=== PATIENT | male | born 1985 | race Caucasian/White ===

== ENCOUNTER 2020-09-29 12:41 | Inpatient (IN) | payer MEDICARE, SELFPAY ==
--- NOTE | ~2020-09-29 | CT_ITS ---
EXAMINATION: HEAD CT WITHOUT CONTRAST CERVICAL SPINE CT WITHOUT CONTRAST CLINICAL INFORMATION: Altered mental status. COMPARISON: None. TECHNIQUE: Contiguous axial imaging of the head was performed without the administration of IV contrast. Axial multidetector volumetric images were also performed through the cervical spine without intravenous contrast. Multiplanar reconstructed images in coronal and sagittal orientations were submitted. This CT examination was performed using dose optimization techniques as appropriate, variously including the following: *Automated exposure control *Adjustment of mA and/or kV according to patient size (this includes techniques or standardized protocols for targeted exams where dose is matched to indication/reason for exam; i.e. extremities or head) *Use of iterative reconstruction technique DOSE: 643 and 218 mGy-cm FINDINGS: HEAD: There is no evidence of acute intracranial hemorrhage or territorial infarction. No abnormal mass-effect or midline shift. No extra-axial fluid collections. [place] to white matter differentiation is well preserved. The ventricles are normal in size and configuration. There is no abnormal attenuation within the brain parenchyma. The soft tissues and osseous structures are normal. The sinuses and mastoid air cells are clear. CERVICAL SPINE: Vertebral body heights are normal. No fractures of the vertebral bodies or posterior elements. Vertebral alignment is normal. No subluxation. The craniocervical and atlantoaxial articulations are normal. Intervertebral disc heights are normal. No significant degenerative disc disease. Facet joints are normal. Central canal and neural foramina appear patent without appreciable stenoses. No significant paravertebral soft tissue swelling. There is abnormal left lateral translation of the esophagus into the left cervical soft tissues just to deep to the left sternocleidomastoid muscle and superficial to the carotid and jugular vasculature.. There is gas in the left lung apex which is only partially included on these images, better seen on the CT of the chest. CT/CT cervical spine wo con IMPRESSION: 1. No acute intracranial pathology. 2. No acute fracture or malalignment in the cervical spine. 3. Abnormal lateral translation of the cervical esophagus into the left lateral superficial soft tissues, most likely the result of prior surgery.
--- NOTE | ~2020-09-29 | XR_ITS ---
EXAMINATION: XR CHEST CLINICAL INFORMATION: Abnormal chest CT COMPARISON: Chest CT from the same day. TECHNIQUE: Frontal view of the chest was obtained. FINDINGS: As seen in the chest CT, there is abnormal lucency along the medial aspect of the left lung, more pronounced at the apex, potentially corresponding to gas within a colonic interposition graft or markedly abnormal, patulous esophagus. This is noted to extend into the soft tissues of the left lateral neck. Adjacent lung is unremarkable aside from dependent atelectasis. No definite effusion on these supine images. Cardiac and mediastinal contours are unremarkable. No acute osseous findings. XR/XR chest 1V IMPRESSION: No acute pulmonary findings. Lucency in the medial aspect of the left hemithorax corresponds to the colonic interposition graft or patulous esophagus, better seen on the prior chest CT .
--- NOTE | ~2020-09-29 | XR_ITS ---
EXAMINATION: CHEST AND ABDOMEN CLINICAL INFORMATION: Foreign body COMPARISON: September 30, 2020 and September 29, 2020 TECHNIQUE: AP sitting chest. AP abdomen. FINDINGS: There is again noted be a radiopaque structure with appearance of metallic snap with low density material surrounding it which may represent plastic or fastening device. This may possibly represent a monitoring snap. This is seen in the retrocardiac region which appears to be within the left lower lung. There is again noted to be left lower lobe density with probable air-fluid level. There is again noted to be appears to be a loculated pneumothorax as seen on previous CT scan. Scarring is seen within the right upper lobe. Heart normal size. No evidence of pulmonary edema. No radial opaque foreign body is seen within the abdomen. Gastrostomy tube seen in place. No dilated loops of large or small bowel are evident. Stool and gas is seen throughout the colon. Psoas margins are intact. XR/XR KUB IMPRESSION: Radiopaque foreign body seen retrocardiac location left lower lobe with appearance of a snap. This is similar appearance to study of September 30, 2020 and is noted to be lower in position than on study of September 29, 2020. This lies in region of left lower lobe disease. What appears to be chronic loculated left pneumothorax. Gastrostomy tube in place with no significant abnormality of the abdomen appreciated.
--- NOTE | ~2020-09-29 | XR_ITS ---
EXAMINATION: XR CHEST CLINICAL INFORMATION: Evaluate foreign body left hemithorax. COMPARISON: None TECHNIQUE: Frontal view of the chest was obtained. FINDINGS: The lungs are hyperinflated with increased linear density in both upper lobes and left lower lobe likely chronic scarring or atelectasis. No acute consolidation seen. There is no pleural effusion. There is increased lucency in the left upper lobe likely from gastric pull-through or colonic intussusception which is distended with air.. Heart size and pulmonary vascularity is normal. No gross bony abnormality seen. XR/XR chest 1V IMPRESSION: Increased lucency in the left upper lobe likely related to postsurgical changes. Mild atelectatic changes or scarring in both upper lobes and lower lobes..
--- NOTE | ~2020-09-29 | CT_ITS ---
EXAMINATION: CT SOFT TISSUE NECK WITHOUT CONTRAST CLINICAL INFORMATION: Question foreign body ingestion. COMPARISON: CT scan of the chest abdomen and pelvis 09/29/2020. TECHNIQUE: Helical imaging was performed in the axial plane with generation of coronal and sagittal reformatted images. This CT examination was performed using dose optimization techniques as appropriate, variously including the following: *Automated exposure control *Adjustment of mA and/or kV according to patient size (this includes techniques or standardized protocols for targeted exams where dose is matched to indication/reason for exam; i.e. extremities or head) *Use of iterative reconstruction technique DLP: 245 mGy-cm FINDINGS: There appear to be chronic changes of esophagectomy with a colonic interposition repair that traverses the left neck into the thoracic outlet, anterior to the neurovascular bundle. Pharyngeal mucosal spaces are symmetric. Parapharyngeal and retromaxillary fat is preserved. Senior Engineer spaces are symmetric. Parotid and submandibular glands are normal. The tongue base and epiglottis are normal. Preepiglottic fat is preserved. Glottic and subglottic airways are patent. The thyroid gland is normal. There are no pathologically enlarged cervical lymph nodes. There is no acute osseous finding. No worrisome lytic or blastic osseous lesion. The skull base is intact. Limited visualization the posterior fossa reveals no abnormal finding. No mastoid middle ear effusion. No active paranasal sinus disease. CT/CT soft tissue neck wo con IMPRESSION: There appear to be chronic changes of an esophagectomy with a colonic interposition repair that traverses the left neck into the thoracic outlet anterior to the neurovascular bundle. A suspected perforation with an associated left hydropneumothorax, possibly related to an ingested foreign body is better depicted on dedicated CT imaging of the chest.
--- NOTE | ~2020-09-29 | CT_ITS ---
EXAMINATION: CT CHEST, ABDOMEN AND PELVIS WITHOUT CONTRAST CLINICAL INFORMATION: Altered mental status with G-tube in place. COMPARISON: No pertinent prior studies are available for comparison. TECHNIQUE: Multidetector volumetric imaging was performed from the thoracic inlet through the pubic symphysis without IV contrast. Sagittal and coronal reformatted images were obtained on the technologist's workstation. This CT examination was performed using dose optimization techniques as appropriate, variously including the following: *Automated exposure control *Adjustment of mA and/or kV according to patient size (this includes techniques or standardized protocols for targeted exams where dose is matched to indication/reason for exam; i.e. extremities or head) *Use of iterative reconstruction technique DLP: 189 mGy-cm FINDINGS: CHEST: Lung: Bibasilar scarring is present. Mediastinum: No mediastinal or hilar lymphadenopathy seen. Central vascular structures are unremarkable. An air-filled esophagus is not seen Pericardium/Pleura: There is a left-sided complex collection in the posterior chest which extends from the level of the diaphragm all the way up into the region of the cervical esophagus on the left neck, but a communication with the pharynx is not seen with certainty. Within this collection, there appears to be a metallic and possibly plastic foreign body seen with the metallic component almost appearing as a snap about 1.2 cm in diameter. The other component measures 2.75 x 2.0 cm. Without knowing surgical history, differential diagnosis is a bit difficult. One possibility would be if this patient had prior pneumonectomy, and a spacer was used in the pleural space to fill the potential pleural space (e.g., see: https://[email or web address].org/article/[email or web address])[email or web address]/pdf . Differential diagnosis would also include hydropneumothorax/empyema with a posterior pleural collection measuring at least 8.4 x 4.0 x 12.0 cm containing fluid and air. Alternatively, this could represent some kind of colonic interposition with colon in the pleural space, however, it is a bit unusual to not have any surgical clips in the abdomen or pelvis and, in addition, a G-tube is in place. Correlation with the surgical history will be critical in this case, and an accurate diagnosis cannot really be given without knowing the surgical history. Chest Wall/Axilla: No chest wall masses or axillary adenopathy seen. ABDOMEN/PELVIS: Peritoneal Space: No significant free air or free fluid identified. Liver, Gallbladder, Biliary Tree: The liver is normal in size, shape, and attenuation. No focal hepatic lesion or biliary ductal dilatation is present. The gallbladder is unremarkable with no evidence of radiopaque gallstones, gallbladder wall thickening, or obvious pericholecystic inflammatory changes. Pancreas: Unremarkable. Spleen: Unremarkable. Adrenal Glands: Unremarkable. Kidneys and Ureters: The kidneys are normal in size, shape, and attenuation. No hydronephrosis, hydroureter, or calculi seen. No perinephric stranding. Bladder: Unremarkable. Gastrointestinal Tract: Gastrostomy tube is in good position within the stomach. See discussion regarding the possibility of colon in the pleural space and possible interposition between the pharynx and stomach. However, the entire colon appears to be in place within the abdomen and pelvis, and no suture lines are seen. Abdominal Wall: No significant hernia is appreciated. Lymph Nodes: No lymphadenopathy. Vascular: No aortic aneurysm is seen. The IVC appears unremarkable. PELVIC VISCERA: A 1.8 cm cyst is noted in the right ovary. The uterus is unremarkable. No free intraperitoneal fluid is present. OSSEUS STRUCTURES: Artifact is present which appears to mimic a humeral fracture. No acute osseous injuries are seen. There are some deformity seen in the left-sided ribs which may be indicative of prior thoracotomy. CT/CT abdomen pelvis wo con IMPRESSION: 1. There is a collection in the chest described above which goes from the level of the diaphragm to the level of the cervical esophagus. Differential diagnosis is discussed above in the Pericardium/Pleura section. The clinical/surgical history is critical in this case. The most likely diagnosis may be that the patient underwent a modified thoracoplasty using some kind of implant to fill the potential pleural space. 2. Gastrostomy tube in good position. 3. Other incidental findings, as described above. This critical result was discussed with Tarah Bailey NP at 5:30 PM on the day of the exam, and it was ascertained that the content and urgency of the report was understood at the time of direct communication.
--- NOTE | ~2020-09-29 | XR_ITS ---
EXAMINATION: CHEST AND ABDOMEN CLINICAL INFORMATION: Foreign body COMPARISON: September 30, 2020 and September 29, 2020 TECHNIQUE: AP sitting chest. AP abdomen. FINDINGS: There is again noted be a radiopaque structure with appearance of metallic snap with low density material surrounding it which may represent plastic or fastening device. This may possibly represent a monitoring snap. This is seen in the retrocardiac region which appears to be within the left lower lung. There is again noted to be left lower lobe density with probable air-fluid level. There is again noted to be appears to be a loculated pneumothorax as seen on previous CT scan. Scarring is seen within the right upper lobe. Heart normal size. No evidence of pulmonary edema. No radial opaque foreign body is seen within the abdomen. Gastrostomy tube seen in place. No dilated loops of large or small bowel are evident. Stool and gas is seen throughout the colon. Psoas margins are intact. XR/XR chest 1V IMPRESSION: Radiopaque foreign body seen retrocardiac location left lower lobe with appearance of a snap. This is similar appearance to study of September 30, 2020 and is noted to be lower in position than on study of September 29, 2020. This lies in region of left lower lobe disease. What appears to be chronic loculated left pneumothorax. Gastrostomy tube in place with no significant abnormality of the abdomen appreciated.
--- NOTE | ~2020-09-29 | XR_ITS ---
EXAMINATION: XR CHEST CLINICAL INFORMATION: Question foreign body COMPARISON: CT scan performed earlier today TECHNIQUE: Frontal view of the chest was obtained. He was obtained with the EKG leads in place and then without the EKG leads in place. FINDINGS: A snap or button is seen overlying the mid thorax. Heart size normal. Mediastinal and pulmonary abnormalities better assessed on CT scan performed immediately before this. XR/XR chest 1V IMPRESSION: Given the fact that the patient swallowed an EKG lead and this is now within the collection seen in the chest which can infer that the patient had some kind of interposition graft between the oropharynx and the stomach. In the CT report, I stated that the most likely diagnosis would be a spacer after some kind of thoracoplasty, but this would not be the case given the above finding.
[2020-09-29 12:48] VITALS: BP 128/70; PULSE 101
[2020-09-29 12:49] VITALS: BP 112/75; PULSE 95; RESP 19; TEMP 36.9; O2SAT 98; BMI 20.3
[2020-09-29 12:51] LABS: Glucose, Whole Blood 110 mg/dL (60-115)
--- NOTE | 2020-09-29 13:22 | ECG_ITS ---
Test Reason : AMS Blood Pressure : / mmHG Vent. Rate : 068 BPM Atrial Rate : 068 BPM P-R Int : 098 ms QRS Dur : 092 ms QT Int : 408 ms P-R-T Axes : 034 057 030 degrees QTc Int : 433 ms Poor data quality, interpretation may be adversely affected Sinus rhythm with short MI Minimal voltage criteria for LVH, may be normal variant Borderline ECG No previous ECGs available Referred By: Angela Lopez Electronically Signed By:REBECCA HAM MD
[2020-09-29 14:43] LABS: Basophils Percent Auto 0.5 % (0-2); Eosinophils Percent Auto 0.2 % (0-4); Imm Gran Abs Auto 0.01 X10*3/uL (0.00-0.03); Imm Gran Pct Auto 0.2 % (0.0-0.4); Lymphocytes Absolute Auto 0.7 X10*3/uL (1.2-4.9); Lymphocytes Percent Auto 11.6 % (20-40); MANUAL DIFF FLAG SCAN; Mean Corpuscular Volume 93.5 fL (80-98); Monocytes Absolute Auto 0.3 X10*3/uL (0.1-1.2); Monocytes Percent Auto 5.5 % (2-11); Neutrophils Absolute Auto 4.7 X10*3/uL (2.0-8.3); PLT CLUMP 1; Red Cell Distribution Width 12.7 % (11.0-16.0); SCAN SMEAR FLAG 1; White Blood Count 5.8 X10*3/uL (4.8-10.8)
[2020-09-29 14:45] LABS: Glucose Urine UA NEG (NEG); Leukocyte Esterase Urine NEG (NEG); Nitrite Urine NEG (NEG); Urine Blood NEG (NEG); Urine Ketones NEG (NEG); Urine Protein NEG (NEG-TRACE)
[2020-09-29 14:48] LABS: Appearance Urine CLEAR; Color Urine YELLOW
[2020-09-29 14:59] LABS: Platelet Count 170 X10*3/uL (160-400); SLIDE REVIEW VERIFIED
[2020-09-29 15:11] LABS: Ammonia 30 umol/L (13-55)
[2020-09-29 15:18] LABS: Ethanol < 10 mg/dL
[2020-09-29 15:19] LABS: Amphetamine Screen Urine Not Detected (Not Detect); Barbiturates, Urine Not Detected (Not Detect); Benzodiazepines Screen Urine Not Detected (Not Detect); Cannabinoid Screen Urine Not Detected (Not Detect); Cocaine Screen Urine Not Detected (Not Detect); Opiate Screen Urine Not Detected (Not Detect); Phencyclidine Screen Urine Not Detected (Not Detect)
[2020-09-29 15:32] LABS: Magnesium 2.1 mg/dL (1.6-2.6); Salicylate < 5.0 mg/dL (15-30)
[2020-09-29 15:33] LABS: Albumin Level 4.6 g/dL (3.5-5.0); Alkaline Phosphatase 78 U/L (39-117); Anion Gap 14 (12-20); Bilirubin Total 0.3 mg/dL (0.0-1.0); Blood Urea Nitrogen 9 mg/dL (9-16); Calcium 9.8 mg/dL (8.4-10.2); Carbon Dioxide 26 mmol/L (22-29); Chloride 105 mmol/L (96-108); Estimated Glomerular Filt Rate > 60; Glucose Random 97 mg/dL (60-115); Lipase 14 U/L (8-78); Sodium 141 mmol/L (135-145); Total Protein 8.1 g/dL (6.5-8.0)
[2020-09-29 15:35] LABS: B Type Natriuretic Peptide 11 pg/mL (<100)
[2020-09-29 15:41] LABS: Acetaminophen LAB < 1 mcg/mL (<30)
[2020-09-29 15:47] LABS: Influenza A PCR NEGATIVE (Negative); Influenza B PCR NEGATIVE (Negative); Resp Syncy Virus RNA Qual PCR NEGATIVE (Negative); SARS COV2 PCR INHOUSE NEGATIVE (Negative)
--- NOTE | 2020-09-29 15:58 | ED.AMS ---
HPI - Altered Mental Status General Chief Complaint: Altered Mental Status <LINDA Goodman Last Filed: 09/29/20 16:52> Stated Complaint: CONFUSSION <LINDA Goodman Last Filed: 09/29/20 16:52> Time Seen by Provider: 09/29/20 13:06 <LINDA Goodman Last Filed: 09/29/20 16:52> Source: EMS <LINDA Goodman Last Filed: 09/29/20 16:52> Mode of arrival: EMS <LINDA Goodman Last Filed: 09/29/20 16:52> Limitations: altered mental status <LINDA Goodman Last Filed: 09/29/20 16:52> History of Present Illness HPI narrative: Patient is presenting via EMS after she was found unresponsive by bystanders with vomit on her clothes exhibiting abnormal behaviors therefore they brought her here for further evaluation and treatment. Initially another provider went into the room and the patient told the provider ?no man no man no man? therefore I took over the case and When I walk into the patient's room she was curled up into a ball repeating ?she she she she she she she she? While nippling on her blanket. Unable to get any information at this time from the patient. <LINDA Goodman Last Filed: 09/29/20 16:52> MD complaint: altered mental status <LINDA Goodman Last Filed: 09/29/20 16:52> Related Data Home Medications: Home Medications Medication Instructions Recorded Confirmed No Known Home Meds 09/29/20 09/29/20 <LINDA Goodman Last Filed: 09/29/20 16:52> Allergies/Adverse Reactions: Allergies Allergy/AdvReac Type Severity Reaction Status Date / Time No Known Allergies Allergy Verified 09/29/20 13:06 <LINDA Goodman Last Filed: 09/29/20 16:52> Review of Systems Review of Systems: Yes Unobtainable due to mental condition and Unobtainable due to mental status <LINDA Goodman Last Filed: 09/29/20 16:52> [facility] Past Medical History Attestation statement: The following information was validated with the patient. <LINDA Goodman Last Filed: 09/29/20 16:52> Social History Social History: Social History Advance Directives: No Advance Directives Information Provided: Yes <LINDA Goodman - Last Filed: 09/29/20 16:52> Physical Exam Vital Signs: Vital Signs: Last Vital Signs Temp 98.5 F 09/29/20 12:49 Pulse 95 09/29/20 12:49 Resp 19 09/29/20 12:49 BP 112/75 09/29/20 12:49 Pulse Ox 98 09/29/20 12:49 Body Mass Index 20.3 vital signs have been reviewed as normal and appeared to be correct. Blood pressure normal. Heart rate normal. Respiration rate normal. Temperature normal. Oxygen saturation normal. <LINDA Goodman - Last Filed: 09/29/20 16:52> Vital Signs: Last Vital Signs Temp 98.5 F 09/29/20 12:49 Pulse 95 09/29/20 12:49 Resp 19 09/29/20 12:49 BP 112/75 09/29/20 12:49 Pulse Ox 98 09/29/20 12:49 Body Mass Index 20.3 <Celestina Bailey NP - Last Filed: 09/29/20 23:12> Appearance: Alert. No acute distress. Head: Normal external exam. Normocephalic. Atraumatic. No Farrell signs noted. No raccoon eyes noted Eyes: PERRLA. EOMI. Conjunctiva and sclera normal. Eyelids normal. ENT: EAC normal. TM's Normal. Pharynx normal. Uvula midline. Moist mucous membranes. No trismus noted. No drooling noted. No muffled voice noted. Neck: Normal inspection. Neck supple. FROM. No adenopathy. Thyroid Normal. No meningeal signs. No neck mass noted. CVS: Normal heart rate and rhythm. Heart sound normal. Pulses normal throughout. No murmurs/rales/gallops. Respiratory: No respiratory distress. Painless inspiration. Breath sounds normal. No wheezes/rales/rhonchi noted. Chest nontender. No accessory muscle usage noted or decreased air movement noted. Abdomen: Patient is noted to have a G-tube in place. No signs of infection or purulent drainage from the G-tube. Otherwise abdomen is Soft and nontender. Bowel sounds normal in all 4 quadrants. No distention noted. No organomegaly noted. No visible injury noted. Back: No CVA tenderness. Full range of motion noted. No rashes/lesion/induration/fluctuance or signs of infection noted. Skin: Skin warm and dry. Normal skin color. Normal skin turgor. No rashes/lesions/lacerations noted. Extremities: No lower extremity edema. No calf tenderness is noted. exhibit normal range of motion. Extremities nontender. Neuro: Alert. No motor deficit. No sensory deficit. Reflexes normal. Normal steady gait. No focal neuro deficits noted. Vascular: + radial pulses/+ 2 distal pedal pulses/+2 dorsalis pedis b/l. Normal cap refill. No cyanosis noted to upper extremity nails and lower extremity toes nails. <LINDA Goodman - Last Filed: 09/29/20 16:52> Course Course Course Narrative: 13:10pm - Patient presenting to the ED via EMS after she was found down by bystanders at [address] [place] [address] and she was nonverbal and exhibiting abnormal behaviors therefore EMS brought her here for further evaluation and treatment. On arrival patient reported to the male provider that she did not want males taking care of her therefore I went in and she is verbal but very vague she does not speak in complete sentences she continues to say ?she she she she?. There are no signs of trauma. She is alert. Neck is nontender and patient has full range of motion and supple. No meningeal signs. Lungs are clear to auscultation. CV RRR. No focal neuro deficits are noted. She has a normal steady gait. Therefore at this time will obtain labs, blood cultures, lactic acid, UA, drugs of abuse screen, salicylate level, aspirin level, CT scan of brain/cervical spine/chest and abdomen and pelvis. Will attempt to contact EMS to see where exactly the patient was picked up and then contact the police to see if they can try to identify the patient. Will re-evaluate. <LINDA Goodman - Last Filed: 09/29/20 16:52> 13:10pm - Patient presenting to the ED via EMS after she was found down by bystanders at [address] [place] [address] and she was nonverbal and exhibiting abnormal behaviors therefore EMS brought her here for further evaluation and treatment. On arrival patient reported to the male provider that she did not want males taking care of her therefore I went in and she is verbal but very vague she does not speak in complete sentences she continues to say ?she she she she?. There are no signs of trauma. She is alert. Neck is nontender and patient has full range of motion and supple. No meningeal signs. Lungs are clear to auscultation. CV RRR. No focal neuro deficits are noted. She has a normal steady gait. Therefore at this time will obtain labs, blood cultures, lactic acid, UA, drugs of abuse screen, salicylate level, aspirin level, CT scan of brain/cervical spine/chest and abdomen and pelvis. Will attempt to contact EMS to see where exactly the patient was picked up and then contact the police to see if they can try to identify the patient. Will re-evaluate. 1800-Received sign out from Angela MCKEON pending CT scans. 1844-Received call from Dr Jean Baptiste from radiology. ?fluid collection w/ FB on CT chest. ?if patient had previous surgery or any history known. Patient still confused, listed as Zakia Oliver with no information provided. Recommended CXR. 1900-Went to evaluate patient. Found drooling, pointing to throat. After multiple attempts to determine cause nursing and I were able to determine the patient may have ingested a FB. CT soft tissue neck ordered. VSS. Dr Pereira aware of patient and agrees with plan. 1910-Able to establish from patient that she has parents Walter and Linda who live in [place]. I was able to find them online and spent 20 minutes speaking to Linda about the patient. Mom tells me patient has a history of FB ingestions, bipolar, borderline personality disorder and some form of oral aversion. Currently transitioning female to male and goes by Jamshid/they/them. Has had top surgery. AT 25 months they ingested draino causing a FB perforation with subsequent resection with a piece of duodenum used in place. During that time they had a feeding tube placed. They have tolerated PO by mouth since then but 2 yrs ago ingested 4 latex gloves with subsequent removal. Since then oral aversion although able to eat/drink by mouth. Therefore food boluses w/ soy baby formula via GT. Jamshid makes their own medical decisions, does live with mom and dad. This weekend traveled to [place], [place] and was driving home today when they last spoke to them. I explained the reason for today's ER visit as well as the patient's clinical state of confusion. Mom tells me that Jamshid has these 'spells with confusion that typical last several hours then self-resolve. Not currently taking any medications. I explained we are waiting for imaging and will involve our CARE team. 1915-Called into room. Patient spit out a 4X4 gauze and tells me she swallowed another one. I witnessed the gauze on the floor. She has a 1:1 sitter at this time. 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 A suspected perforation with an associated left hydropneumothorax, possibly related to an ingested foreign body is better depicted on dedicated CT imaging of the ches Called for read for Ct chest. Pending call back. Patient HD stable. No tachypnea or diff breathing noted. Stable saturations. . 1930-CT chest shows a left-sided complex hydropneumothorax/empyema with a posterior pleural collection measuring 8.4 times for x 12 cm containing fluid and air and what may appear to be a metallic foreign body. Loculated air in the pleural space herniating out into the left supraclavicular and infraclavicular chest wall. No leukocytosis or fever. No respiratory complaints.. Will discuss with thoracics. 2100-spoke to Lia Gonzalez from thoracic. Recommended admission. Swallow screen in the morning. She is aware that the patient may refuse to perform the swallow screen. Recommended admission. Spoke to Dr. Solano who will admit the patient. Patient is complaining of feeling depressed and suicidal. No plan. Will also need a crisis evaluation. Family was called and updated. <Celestina Bailey NP - Last Filed: 09/29/20 23:12> Reevaluation(s) Reevaluation #1: - patient is still exhibiting abnormal behaviors although patient is speaking a lot more now reporting a long psychiatric history. Patient reports they reside in [place] with the parents although does not want parents called and does not want to tell us the parents name. Patient reports that she wasadopted as a child in her legal name as a child with Radha Bryant she reports her name is Jacey Carmen and she changed it to Oumar Carmen although she does not like to be called Oumar she wants to be called Fayebeon or they . Patient relates to me that she occasionally has intermittent seizures and was on Keppra although patient reports she discontinued taking her Keppra on her own because she does not like the way it makes her feel. She reports today when she was driving she felt like she was going to have a seizure therefore she pulled her car over locked her car and then threw herself on the ground and then that is when the bystander seen her and brought her here for further evaluation and treatment. - labs returned at this time and patient labs are all within normal limits. UA within normal limits no evidence of UTI. UHCG negative. Patient negative for salicylate/acetaminophen and negative for all drugs and EtOH. Patient negative for COVID/RSV/flu. - EKG is normal sinus rhythm with ventricular rate of 68 with a short OR interval at 98 milliseconds and minimal voltage criteria for LVH otherwise no acute ischemic change are noted. No prior EKGs to compare to due to we do not know the patient's real name. - pending CT scan of brain/cervical spine/chest and abdomen pelvis will re-evaluate. <LINDA Goodman - Last Filed: 09/29/20 16:52> - patient is still exhibiting abnormal behaviors although patient is speaking a lot more now reporting a long psychiatric history. Patient reports they reside in [place] with the parents although does not want parents called and does not want to tell us the parents name. Patient reports that she wasadopted as a child in her legal name as a child with Radha Bryant she reports her name is Jacey Carmen and she changed it to Oumar Carmen although she does not like to be called Oumar she wants to be called Fayebeon or they . Patient relates to me that she occasionally has intermittent seizures and was on Keppra although patient reports she discontinued taking her Keppra on her own because she does not like the way it makes her feel. She reports today when she was driving she felt like she was going to have a seizure therefore she pulled her car over locked her car and then threw herself on the ground and then that is when the bystander seen her and brought her here for further evaluation and treatment. - labs returned at this time and patient labs are all within normal limits. UA within normal limits no evidence of UTI. UHCG negative. Patient negative for salicylate/acetaminophen and negative for all drugs and EtOH. Patient negative for COVID/RSV/flu. - EKG is normal sinus rhythm with ventricular rate of 68 with a short OR interval at 98 milliseconds and minimal voltage criteria for LVH otherwise no acute ischemic change are noted. No prior EKGs to compare to due to we do not know the patient's real name. - pending CT scan of brain/cervical spine/chest and abdomen pelvis will re-evaluate. <Celestina Bailey NP - Last Filed: 09/29/20 23:12> Time: 16:14 <LINDA Goodman - Last Filed: 09/29/20 16:52> Reevaluation #2: - police reports that they cannot find the patient's car the Subaru that she reports she parked near the gas station where she was picked up - will continue to monitor pending CT scan of brain/cervical spine/chest and abdomen and pelvis. <LINDA Goodman - Last Filed: 09/29/20 16:52> Time: 16:25 <LINDA Goodman - Last Filed: 09/29/20 16:52> MDM - Altered Mental Status Medical Records Attestation: I reviewed the patient's medical records. <LINDA Goodman - Last Filed: 09/29/20 16:52> Lab Data Attestation: I reviewed the patient's lab results. <LINDA Goodman - Last Filed: 09/29/20 16:52> Result diagrams: : 09/29/20 14:32 09/29/20 14:31 <LINDA Goodman - Last Filed: 09/29/20 16:52> Labs: Lab Results 09/29/20 09/29/20 09/29/20 Range/Units 12:45 13:54 13:54 WBC (4.8-10.8) X10*3/uL RBC (4.20-5.50) X10*6/uL Hgb (12.0-16.0) g/dl Hct (37-47) % MCV (80-98) fL MCH (27.0-33.0) pg MCHC (31.0-35.0) g/dl RDW (11.0-16.0) % Plt Count (160-400) X10*3/uL MPV Immature Gran % (Auto) (0.0-0.4) % Neut % (Auto) (45-73) % Lymph % (Auto) (20-40) % [place] % (Auto) (2-11) % Eos % (Auto) (0-4) % Baso % (Auto) (0-2) % Lymph # (Auto) (1.2-4.9) X10*3/uL [place] # (Auto) (0.1-1.2) X10*3/uL Eos # (Auto) (0.0-0.4) X10*3/uL Baso # (Auto) (0.0-0.2) X10*3/uL Abs Immat Gran (auto) (0.00-0.03) X10*3/uL Absolute Neuts (auto) (2.0-8.3) X10*3/uL Absolute Nucleated RBC (0.0-0.012) X10*3/uL Nucleated RBC % (auto) (0.0-0.2) /100WBC Smear Tech's Comments Sodium (135-145) mmol/L Potassium (3.3-5.1) mmol/L Chloride (96-108) mmol/L Carbon Dioxide (22-29) mmol/L Anion Gap (12-20) BUN (9-16) mg/dL Creatinine (0.5-1.4) mg/dL Estim Creat Clear Calc Estimated GFR POC Glucose 110 (60-115) mg/dL Random Glucose (60-115) mg/dL Calcium (8.4-10.2) mg/dL Magnesium (1.6-2.6) mg/dL Total Bilirubin (0.0-1.0) mg/dL AST (5-31) U/L ALT (0-31) U/L Alkaline Phosphatase (39-117) U/L Ammonia (13-55) umol/L B-Natriuretic Peptide (<100) pg/mL Total Protein (6.5-8.0) g/dL Albumin (3.5-5.0) g/dL Lipase (8-78) U/L Urine Color YELLOW Urine Appearance CLEAR Urine pH 7.0 (5.0-8.0) Ur Specific [place] 1.010 (1.005-1.025) Urine Protein NEG (NEG-TRACE) MG/DL Urine Glucose (UA) NEG (NEG) MG/DL Urine Ketones NEG (NEG) MG/DL Urine Blood NEG (NEG) Urine Nitrite NEG (NEG) Ur Leukocyte Esterase NEG (NEG) Urine Test NEGATIVE (NEGATIVE) Salicylates (15-30) mg/dL Urine Opiates Screen (Not Detect) Acetaminophen (<30) mcg/mL Ur Barbiturates Screen (Not Detect) Ur Phencyclidine Scrn (Not Detect) Ur Amphetamines Screen (Not Detect) U Benzodiazepines Scrn (Not Detect) Urine Cocaine Screen (Not Detect) U Marijuana (THC) Screen (Not Detect) Ethyl Alcohol mg/dL Coronavirus (PCR) (Negative) Influenza Type A (PCR) (Negative) Influenza Type B (PCR) (Negative) RSV RNA Qual (PCR) (Negative) 09/29/20 09/29/20 09/29/20 Range/Units 13:55 14:31 14:31 WBC (4.8-10.8) X10*3/uL RBC (4.20-5.50) X10*6/uL Hgb (12.0-16.0) g/dl Hct (37-47) % MCV (80-98) fL MCH (27.0-33.0) pg MCHC (31.0-35.0) g/dl RDW (11.0-16.0) % Plt Count (160-400) X10*3/uL MPV Immature Gran % (Auto) (0.0-0.4) % Neut % (Auto) (45-73) % Lymph % (Auto) (20-40) % [place] % (Auto) (2-11) % Eos % (Auto) (0-4) % Baso % (Auto) (0-2) % Lymph # (Auto) (1.2-4.9) X10*3/uL [place] # (Auto) (0.1-1.2) X10*3/uL Eos # (Auto) (0.0-0.4) X10*3/uL Baso # (Auto) (0.0-0.2) X10*3/uL Abs Immat Gran (auto) (0.00-0.03) X10*3/uL Absolute Neuts (auto) (2.0-8.3) X10*3/uL Absolute Nucleated RBC (0.0-0.012) X10*3/uL Nucleated RBC % (auto) (0.0-0.2) /100WBC Smear Tech's Comments Sodium 141 (135-145) mmol/L Potassium 4.0 (3.3-5.1) mmol/L Chloride 105 (96-108) mmol/L Carbon Dioxide 26 (22-29) mmol/L Anion Gap 14 (12-20) BUN 9 (9-16) mg/dL Creatinine 0.90 (0.5-1.4) mg/dL Estim Creat Clear Calc 85.0 Estimated GFR > 60 POC Glucose (60-115) mg/dL Random Glucose 97 (60-115) mg/dL Calcium 9.8 (8.4-10.2) mg/dL Magnesium 2.1 (1.6-2.6) mg/dL Total Bilirubin 0.3 (0.0-1.0) mg/dL AST 15 (5-31) U/L ALT 13 (0-31) U/L Alkaline Phosphatase 78 (39-117) U/L Ammonia (13-55) umol/L B-Natriuretic Peptide (<100) pg/mL Total Protein 8.1 H (6.5-8.0) g/dL Albumin 4.6 (3.5-5.0) g/dL Lipase 14 (8-78) U/L Urine Color Urine Appearance Urine pH (5.0-8.0) Ur Specific [place] (1.005-1.025) Urine Protein (NEG-TRACE) MG/DL Urine Glucose (UA) (NEG) MG/DL Urine Ketones (NEG) MG/DL Urine Blood (NEG) Urine Nitrite (NEG) Ur Leukocyte Esterase (NEG) Urine Test (NEGATIVE) Salicylates < 5.0 L (15-30) mg/dL Urine Opiates Screen Not Detected (Not Detect) Acetaminophen < 1 (<30) mcg/mL Ur Barbiturates Screen Not Detected (Not Detect) Ur Phencyclidine Scrn Not Detected (Not Detect) Ur Amphetamines Screen Not Detected (Not Detect) U Benzodiazepines Scrn Not Detected (Not Detect) Urine Cocaine Screen Not Detected (Not Detect) U Marijuana (THC) Screen Not Detected (Not Detect) Ethyl Alcohol mg/dL Coronavirus (PCR) (Negative) Influenza Type A (PCR) (Negative) Influenza Type B (PCR) (Negative) RSV RNA Qual (PCR) (Negative) 09/29/20 09/29/20 09/29/20 Range/Units 14:31 14:31 14:31 WBC (4.8-10.8) X10*3/uL RBC (4.20-5.50) X10*6/uL Hgb (12.0-16.0) g/dl Hct (37-47) % MCV (80-98) fL MCH (27.0-33.0) pg MCHC (31.0-35.0) g/dl RDW (11.0-16.0) % Plt Count (160-400) X10*3/uL MPV Immature Gran % (Auto) (0.0-0.4) % Neut % (Auto) (45-73) % Lymph % (Auto) (20-40) % [place] % (Auto) (2-11) % Eos % (Auto) (0-4) % Baso % (Auto) (0-2) % Lymph # (Auto) (1.2-4.9) X10*3/uL [place] # (Auto) (0.1-1.2) X10*3/uL Eos # (Auto) (0.0-0.4) X10*3/uL Baso # (Auto) (0.0-0.2) X10*3/uL Abs Immat Gran (auto) (0.00-0.03) X10*3/uL Absolute Neuts (auto) (2.0-8.3) X10*3/uL Absolute Nucleated RBC (0.0-0.012) X10*3/uL Nucleated RBC % (auto) (0.0-0.2) /100WBC Smear Tech's Comments Sodium (135-145) mmol/L Potassium (3.3-5.1) mmol/L Chloride (96-108) mmol/L Carbon Dioxide (22-29) mmol/L Anion Gap (12-20) BUN (9-16) mg/dL Creatinine (0.5-1.4) mg/dL Estim Creat Clear Calc Estimated GFR POC Glucose (60-115) mg/dL Random Glucose (60-115) mg/dL Calcium (8.4-10.2) mg/dL Magnesium (1.6-2.6) mg/dL Total Bilirubin (0.0-1.0) mg/dL AST (5-31) U/L ALT (0-31) U/L Alkaline Phosphatase (39-117) U/L Ammonia (13-55) umol/L B-Natriuretic Peptide 11 (<100) pg/mL Total Protein (6.5-8.0) g/dL Albumin (3.5-5.0) g/dL Lipase Cancelled (8-78) U/L Urine Color Urine Appearance Urine pH (5.0-8.0) Ur Specific [place] (1.005-1.025) Urine Protein (NEG-TRACE) MG/DL Urine Glucose (UA) (NEG) MG/DL Urine Ketones (NEG) MG/DL Urine Blood (NEG) Urine Nitrite (NEG) Ur Leukocyte Esterase (NEG) Urine Test (NEGATIVE) Salicylates (15-30) mg/dL Urine Opiates Screen (Not Detect) Acetaminophen (<30) mcg/mL Ur Barbiturates Screen (Not Detect) Ur Phencyclidine Scrn (Not Detect) Ur Amphetamines Screen (Not Detect) U Benzodiazepines Scrn (Not Detect) Urine Cocaine Screen (Not Detect) U Marijuana (THC) Screen (Not Detect) Ethyl Alcohol < 10 mg/dL Coronavirus (PCR) (Negative) Influenza Type A (PCR) (Negative) Influenza Type B (PCR) (Negative) RSV RNA Qual (PCR) (Negative) 09/29/20 09/29/20 09/29/20 Range/Units 14:32 14:32 14:33 WBC 5.8 (4.8-10.8) X10*3/uL RBC 4.17 L (4.20-5.50) X10*6/uL Hgb 12.5 (12.0-16.0) g/dl Hct 39.0 (37-47) % MCV 93.5 (80-98) fL MCH 30.0 (27.0-33.0) pg MCHC 32.1 (31.0-35.0) g/dl RDW 12.7 (11.0-16.0) % Plt Count 170 (160-400) X10*3/uL MPV Not Reportable Immature Gran % (Auto) 0.2 (0.0-0.4) % Neut % (Auto) 82.0 H (45-73) % Lymph % (Auto) 11.6 L (20-40) % [place] % (Auto) 5.5 (2-11) % Eos % (Auto) 0.2 (0-4) % Baso % (Auto) 0.5 (0-2) % Lymph # (Auto) 0.7 L (1.2-4.9) X10*3/uL [place] # (Auto) 0.3 (0.1-1.2) X10*3/uL Eos # (Auto) 0.0 (0.0-0.4) X10*3/uL Baso # (Auto) 0.0 (0.0-0.2) X10*3/uL Abs Immat Gran (auto) 0.01 (0.00-0.03) X10*3/uL Absolute Neuts (auto) 4.7 (2.0-8.3) X10*3/uL Absolute Nucleated RBC 0.000 (0.0-0.012) X10*3/uL Nucleated RBC % (auto) 0.0 (0.0-0.2) /100WBC Smear Tech's Comments VERIFIED Sodium (135-145) mmol/L Potassium (3.3-5.1) mmol/L Chloride (96-108) mmol/L Carbon Dioxide (22-29) mmol/L Anion Gap (12-20) BUN (9-16) mg/dL Creatinine (0.5-1.4) mg/dL Estim Creat Clear Calc Estimated GFR POC Glucose (60-115) mg/dL Random Glucose (60-115) mg/dL Calcium (8.4-10.2) mg/dL Magnesium (1.6-2.6) mg/dL Total Bilirubin (0.0-1.0) mg/dL AST (5-31) U/L ALT (0-31) U/L Alkaline Phosphatase (39-117) U/L Ammonia 30 (13-55) umol/L B-Natriuretic Peptide (<100) pg/mL Total Protein (6.5-8.0) g/dL Albumin (3.5-5.0) g/dL Lipase (8-78) U/L Urine Color Urine Appearance Urine pH (5.0-8.0) Ur Specific [place] (1.005-1.025) Urine Protein (NEG-TRACE) MG/DL Urine Glucose (UA) (NEG) MG/DL Urine Ketones (NEG) MG/DL Urine Blood (NEG) Urine Nitrite (NEG) Ur Leukocyte Esterase (NEG) Urine Test (NEGATIVE) Salicylates (15-30) mg/dL Urine Opiates Screen (Not Detect) Acetaminophen (<30) mcg/mL Ur Barbiturates Screen (Not Detect) Ur Phencyclidine Scrn (Not Detect) Ur Amphetamines Screen (Not Detect) U Benzodiazepines Scrn (Not Detect) Urine Cocaine Screen (Not Detect) U Marijuana (THC) Screen (Not Detect) Ethyl Alcohol mg/dL Coronavirus (PCR) NEGATIVE (Negative) Influenza Type A (PCR) NEGATIVE (Negative) Influenza Type B (PCR) NEGATIVE (Negative) RSV RNA Qual (PCR) NEGATIVE (Negative) <LINDA Goodman - Last Filed: 09/29/20 16:52> Lab Results 09/29/20 09/29/20 09/29/20 Range/Units 12:45 13:54 13:54 WBC (4.8-10.8) X10*3/uL RBC (4.20-5.50) X10*6/uL Hgb (12.0-16.0) g/dl Hct (37-47) % MCV (80-98) fL MCH (27.0-33.0) pg MCHC (31.0-35.0) g/dl RDW (11.0-16.0) % Plt Count (160-400) X10*3/uL MPV Immature Gran % (Auto) (0.0-0.4) % Neut % (Auto) (45-73) % Lymph % (Auto) (20-40) % [place] % (Auto) (2-11) % Eos % (Auto) (0-4) % Baso % (Auto) (0-2) % Lymph # (Auto) (1.2-4.9) X10*3/uL [place] # (Auto) (0.1-1.2) X10*3/uL Eos # (Auto) (0.0-0.4) X10*3/uL Baso # (Auto) (0.0-0.2) X10*3/uL Abs Immat Gran (auto) (0.00-0.03) X10*3/uL Absolute Neuts (auto) (2.0-8.3) X10*3/uL Absolute Nucleated RBC (0.0-0.012) X10*3/uL Nucleated RBC % (auto) (0.0-0.2) /100WBC Smear Tech's Comments Sodium (135-145) mmol/L Potassium (3.3-5.1) mmol/L Chloride (96-108) mmol/L Carbon Dioxide (22-29) mmol/L Anion Gap (12-20) BUN (9-16) mg/dL Creatinine (0.5-1.4) mg/dL Estim Creat Clear Calc Estimated GFR POC Glucose 110 (60-115) mg/dL Random Glucose (60-115) mg/dL Calcium (8.4-10.2) mg/dL Magnesium (1.6-2.6) mg/dL Total Bilirubin (0.0-1.0) mg/dL AST (5-31) U/L ALT (0-31) U/L Alkaline Phosphatase (39-117) U/L Ammonia (13-55) umol/L B-Natriuretic Peptide (<100) pg/mL Total Protein (6.5-8.0) g/dL Albumin (3.5-5.0) g/dL Lipase (8-78) U/L Urine Color YELLOW Urine Appearance CLEAR Urine pH 7.0 (5.0-8.0) Ur Specific [place] 1.010 (1.005-1.025) Urine Protein NEG (NEG-TRACE) MG/DL Urine Glucose (UA) NEG (NEG) MG/DL Urine Ketones NEG (NEG) MG/DL Urine Blood NEG (NEG) Urine Nitrite NEG (NEG) Ur Leukocyte Esterase NEG (NEG) Urine Test NEGATIVE (NEGATIVE) Salicylates (15-30) mg/dL Urine Opiates Screen (Not Detect) Acetaminophen (<30) mcg/mL Ur Barbiturates Screen (Not Detect) Ur Phencyclidine Scrn (Not Detect) Ur Amphetamines Screen (Not Detect) U Benzodiazepines Scrn (Not Detect) Urine Cocaine Screen (Not Detect) U Marijuana (THC) Screen (Not Detect) Ethyl Alcohol mg/dL Coronavirus (PCR) (Negative) Influenza Type A (PCR) (Negative) Influenza Type B (PCR) (Negative) RSV RNA Qual (PCR) (Negative) 09/29/20 09/29/20 09/29/20 Range/Units 13:55 14:31 14:31 WBC (4.8-10.8) X10*3/uL RBC (4.20-5.50) X10*6/uL Hgb (12.0-16.0) g/dl Hct (37-47) % MCV (80-98) fL MCH (27.0-33.0) pg MCHC (31.0-35.0) g/dl RDW (11.0-16.0) % Plt Count (160-400) X10*3/uL MPV Immature Gran % (Auto) (0.0-0.4) % Neut % (Auto) (45-73) % Lymph % (Auto) (20-40) % [place] % (Auto) (2-11) % Eos % (Auto) (0-4) % Baso % (Auto) (0-2) % Lymph # (Auto) (1.2-4.9) X10*3/uL [place] # (Auto) (0.1-1.2) X10*3/uL Eos # (Auto) (0.0-0.4) X10*3/uL Baso # (Auto) (0.0-0.2) X10*3/uL Abs Immat Gran (auto) (0.00-0.03) X10*3/uL Absolute Neuts (auto) (2.0-8.3) X10*3/uL Absolute Nucleated RBC (0.0-0.012) X10*3/uL Nucleated RBC % (auto) (0.0-0.2) /100WBC Smear Tech's Comments Sodium 141 (135-145) mmol/L Potassium 4.0 (3.3-5.1) mmol/L Chloride 105 (96-108) mmol/L Carbon Dioxide 26 (22-29) mmol/L Anion Gap 14 (12-20) BUN 9 (9-16) mg/dL Creatinine 0.90 (0.5-1.4) mg/dL Estim Creat Clear Calc 85.0 Estimated GFR > 60 POC Glucose (60-115) mg/dL Random Glucose 97 (60-115) mg/dL Calcium 9.8 (8.4-10.2) mg/dL Magnesium 2.1 (1.6-2.6) mg/dL Total Bilirubin 0.3 (0.0-1.0) mg/dL AST 15 (5-31) U/L ALT 13 (0-31) U/L Alkaline Phosphatase 78 (39-117) U/L Ammonia (13-55) umol/L B-Natriuretic Peptide (<100) pg/mL Total Protein 8.1 H (6.5-8.0) g/dL Albumin 4.6 (3.5-5.0) g/dL Lipase 14 (8-78) U/L Urine Color Urine Appearance Urine pH (5.0-8.0) Ur Specific [place] (1.005-1.025) Urine Protein (NEG-TRACE) MG/DL Urine Glucose (UA) (NEG) MG/DL Urine Ketones (NEG) MG/DL Urine Blood (NEG) Urine Nitrite (NEG) Ur Leukocyte Esterase (NEG) Urine Test (NEGATIVE) Salicylates < 5.0 L (15-30) mg/dL Urine Opiates Screen Not Detected (Not Detect) Acetaminophen < 1 (<30) mcg/mL Ur Barbiturates Screen Not Detected (Not Detect) Ur Phencyclidine Scrn Not Detected (Not Detect) Ur Amphetamines Screen Not Detected (Not Detect) U Benzodiazepines Scrn Not Detected (Not Detect) Urine Cocaine Screen Not Detected (Not Detect) U Marijuana (THC) Screen Not Detected (Not Detect) Ethyl Alcohol mg/dL Coronavirus (PCR) (Negative) Influenza Type A (PCR) (Negative) Influenza Type B (PCR) (Negative) RSV RNA Qual (PCR) (Negative) 09/29/20 09/29/20 09/29/20 Range/Units 14:31 14:31 14:31 WBC (4.8-10.8) X10*3/uL RBC (4.20-5.50) X10*6/uL Hgb (12.0-16.0) g/dl Hct (37-47) % MCV (80-98) fL MCH (27.0-33.0) pg MCHC (31.0-35.0) g/dl RDW (11.0-16.0) % Plt Count (160-400) X10*3/uL MPV Immature Gran % (Auto) (0.0-0.4) % Neut % (Auto) (45-73) % Lymph % (Auto) (20-40) % [place] % (Auto) (2-11) % Eos % (Auto) (0-4) % Baso % (Auto) (0-2) % Lymph # (Auto) (1.2-4.9) X10*3/uL [place] # (Auto) (0.1-1.2) X10*3/uL Eos # (Auto) (0.0-0.4) X10*3/uL Baso # (Auto) (0.0-0.2) X10*3/uL Abs Immat Gran (auto) (0.00-0.03) X10*3/uL Absolute Neuts (auto) (2.0-8.3) X10*3/uL Absolute Nucleated RBC (0.0-0.012) X10*3/uL Nucleated RBC % (auto) (0.0-0.2) /100WBC Smear Tech's Comments Sodium (135-145) mmol/L Potassium (3.3-5.1) mmol/L Chloride (96-108) mmol/L Carbon Dioxide (22-29) mmol/L Anion Gap (12-20) BUN (9-16) mg/dL Creatinine (0.5-1.4) mg/dL Estim Creat Clear Calc Estimated GFR POC Glucose (60-115) mg/dL Random Glucose (60-115) mg/dL Calcium (8.4-10.2) mg/dL Magnesium (1.6-2.6) mg/dL Total Bilirubin (0.0-1.0) mg/dL AST (5-31) U/L ALT (0-31) U/L Alkaline Phosphatase (39-117) U/L Ammonia (13-55) umol/L B-Natriuretic Peptide 11 (<100) pg/mL Total Protein (6.5-8.0) g/dL Albumin (3.5-5.0) g/dL Lipase Cancelled (8-78) U/L Urine Color Urine Appearance Urine pH (5.0-8.0) Ur Specific [place] (1.005-1.025) Urine Protein (NEG-TRACE) MG/DL Urine Glucose (UA) (NEG) MG/DL Urine Ketones (NEG) MG/DL Urine Blood (NEG) Urine Nitrite (NEG) Ur Leukocyte Esterase (NEG) Urine Test (NEGATIVE) Salicylates (15-30) mg/dL Urine Opiates Screen (Not Detect) Acetaminophen (<30) mcg/mL Ur Barbiturates Screen (Not Detect) Ur Phencyclidine Scrn (Not Detect) Ur Amphetamines Screen (Not Detect) U Benzodiazepines Scrn (Not Detect) Urine Cocaine Screen (Not Detect) U Marijuana (THC) Screen (Not Detect) Ethyl Alcohol < 10 mg/dL Coronavirus (PCR) (Negative) Influenza Type A (PCR) (Negative) Influenza Type B (PCR) (Negative) RSV RNA Qual (PCR) (Negative) 09/29/20 09/29/20 09/29/20 Range/Units 14:32 14:32 14:33 WBC 5.8 (4.8-10.8) X10*3/uL RBC 4.17 L (4.20-5.50) X10*6/uL Hgb 12.5 (12.0-16.0) g/dl Hct 39.0 (37-47) % MCV 93.5 (80-98) fL MCH 30.0 (27.0-33.0) pg MCHC 32.1 (31.0-35.0) g/dl RDW 12.7 (11.0-16.0) % Plt Count 170 (160-400) X10*3/uL MPV Not Reportable Immature Gran % (Auto) 0.2 (0.0-0.4) % Neut % (Auto) 82.0 H (45-73) % Lymph % (Auto) 11.6 L (20-40) % [place] % (Auto) 5.5 (2-11) % Eos % (Auto) 0.2 (0-4) % Baso % (Auto) 0.5 (0-2) % Lymph # (Auto) 0.7 L (1.2-4.9) X10*3/uL [place] # (Auto) 0.3 (0.1-1.2) X10*3/uL Eos # (Auto) 0.0 (0.0-0.4) X10*3/uL Baso # (Auto) 0.0 (0.0-0.2) X10*3/uL Abs Immat Gran (auto) 0.01 (0.00-0.03) X10*3/uL Absolute Neuts (auto) 4.7 (2.0-8.3) X10*3/uL Absolute Nucleated RBC 0.000 (0.0-0.012) X10*3/uL Nucleated RBC % (auto) 0.0 (0.0-0.2) /100WBC Smear Tech's Comments VERIFIED Sodium (135-145) mmol/L Potassium (3.3-5.1) mmol/L Chloride (96-108) mmol/L Carbon Dioxide (22-29) mmol/L Anion Gap (12-20) BUN (9-16) mg/dL Creatinine (0.5-1.4) mg/dL Estim Creat Clear Calc Estimated GFR POC Glucose (60-115) mg/dL Random Glucose (60-115) mg/dL Calcium (8.4-10.2) mg/dL Magnesium (1.6-2.6) mg/dL Total Bilirubin (0.0-1.0) mg/dL AST (5-31) U/L ALT (0-31) U/L Alkaline Phosphatase (39-117) U/L Ammonia 30 (13-55) umol/L B-Natriuretic Peptide (<100) pg/mL Total Protein (6.5-8.0) g/dL Albumin (3.5-5.0) g/dL Lipase (8-78) U/L Urine Color Urine Appearance Urine pH (5.0-8.0) Ur Specific [place] (1.005-1.025) Urine Protein (NEG-TRACE) MG/DL Urine Glucose (UA) (NEG) MG/DL Urine Ketones (NEG) MG/DL Urine Blood (NEG) Urine Nitrite (NEG) Ur Leukocyte Esterase (NEG) Urine Test (NEGATIVE) Salicylates (15-30) mg/dL Urine Opiates Screen (Not Detect) Acetaminophen (<30) mcg/mL Ur Barbiturates Screen (Not Detect) Ur Phencyclidine Scrn (Not Detect) Ur Amphetamines Screen (Not Detect) U Benzodiazepines Scrn (Not Detect) Urine Cocaine Screen (Not Detect) U Marijuana (THC) Screen (Not Detect) Ethyl Alcohol mg/dL Coronavirus (PCR) NEGATIVE (Negative) Influenza Type A (PCR) NEGATIVE (Negative) Influenza Type B (PCR) NEGATIVE (Negative) RSV RNA Qual (PCR) NEGATIVE (Negative) <Celestina Bailey NP - Last Filed: 09/29/20 23:12> Imaging Data CT head/cervical spine: Attestation: I personally reviewed and interpreted this imaging study as follows: <Celestina Bailey NP - Last Filed: 09/29/20 23:12> Radiologist's impression: IMPRESSION: 1. No acute intracranial pathology. 2. No acute fracture or malalignment in the cervical spine. 3. Abnormal lateral translation of the cervical esophagus into the left lateral superficial soft tissues, most likely the result of prior surgery. 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 A suspected perforation with an associated left hydropneumothorax, possibly related to an ingested foreign body is better depicted on dedicated CT imaging of the chest. <OFE Sampson Last Filed: 09/29/20 23:12> CT scan - abdomen: Attestation: I personally reviewed and interpreted this imaging study as follows: <OFE Sampson Last Filed: 09/29/20 23:12> Radiologist's impression: Normal. G-tube in place <Celestina Bailey NP - Last Filed: 09/29/20 23:12> CT scan - chest: Attestation: I personally reviewed and interpreted this imaging study as follows: <Celestina Bailey NP - Last Filed: 09/29/20 23:12> Radiologist's impression: Lungs are clear with no opacity or nodule. Mediastinum is normal. Left-sided complex hydropneumothorax/empyema with posterior pleural collection measuring 8.4 times for times 12 centimetres containing fluid and air as well as what appears to be a metallic foreign body. Loculated air in the pleural space herniate out in the left supraclavicular and infraclavicular chest wall. Concern for foreign body <Celestina Bailey NP - Last Filed: 09/29/20 23:12> Chest x-ray: Attestation: I personally reviewed and interpreted this imaging study as follows: <Celestina Bailey NP - Last Filed: 09/29/20 23:12> Radiologist's impression: IMPRESSION: Given the fact that the patient swallowed an EKG lead and this is now within the collection seen in the chest which can infer that the patient had some kind of interposition graft between the oropharynx and the stomach. In the CT report, I stated that the most likely diagnosis would be a spacer after some kind of thoracoplasty, but this would not be the case given the above finding. <Celestina Bailey NP - Last Filed: 09/29/20 23:12> ECG Data ECG #1: Attestation: I personally reviewed and interpreted this ECG as follows: <LINDA Goodman - Last Filed: 09/29/20 16:52> ECG interpretation date: 09/29/20 <LINDA Goodman - Last Filed: 09/29/20 16:52> ECG interpretation time: 13:22 <LINDA Goodman - Last Filed: 09/29/20 16:52> Interpretation: Normal sinus rhythm with ventricular rate of 68 with a short OR interval at 98 bev seconds with minimal voltage criteria for LVH no acute ischemic changes are noted no prior EKGs to compare to due to we do not know the patient's name. <LINDA Goodman - Last Filed: 09/29/20 16:52> Critical Care Time Critical Care Time Critical Care Time: Yes <LINDA Goodman - Last Filed: 09/29/20 16:52> Total Critical Care Time: 60 <LINDA Goodman - Last Filed: 09/29/20 16:52> Attestation: I personally attest to this time spent taking care of the patient <LINDA Goodman - Last Filed: 09/29/20 16:52> Discharge Plan Discharge Clinical Impression: Altered mental status, Abnormal CT of the chest, Suicidal behavior <LINDA Goodman - Last Filed: 09/29/20 16:52> Patient Disposition: Admitted As Inpatient <LINDA Goodman Last Filed: 09/29/20 16:52>
[2020-09-29 16:38] LABS: UPreg QC Valid YES; Urine Pregnancy NEGATIVE (NEGATIVE)
--- NOTE | 2020-09-29 18:30 | PC.NURSE ---
Mental health at bedside talking with patient
--- NOTE | 2020-09-29 18:53 | MHC.CARE ---
Pt arrived by ambulance after being found AMS. Remained in ED as a Zakia Oliver for several hours before being able to identify themselves. Pronouns they/them, goes by Jamshid. Reported that they left [place] yesterday and drove to [facility] trying to go to an Autism program but was turned away. Unclear what kind of program they were referring to. They stopped in [place] on their way back to [place] and next thing they knew they were in the hospital. Reported that they must have had several seizures and denied having taken any substances. When asked if they ingested anything, they said that they like to eat things that they shouldn't. They ate a bandage earlier in the afternoon and during this conversation stated that they really like the blue surgical gloves and wants to eat them too. Stated that they were diagnosed with Autism (Asperger's) as a child. Endorsed suicidal ideation and history of suicide attempts but denied having tried to hurt themselves today. Has history of psychiatric hospitalizations but not for a while. Reported having an eating disorder and a G tube, which it was shared by pt's mother during a conversation with ED provider that the G tube was a result of pt drinking Draino (and damaging their esophagus. It is unclear if the eating disorder referred to was anorexia or Pica. Per ED provider, Celestina Bailey NP, pt's mother reported that the pt has several diagnoses, including Bipolar Disorder and Borderline Personality Disorder. Full medical work up pending. CARE team consult when medically cleared.
[2020-09-29 20:00] VITALS: BP 102/72; PULSE 57; RESP 16; O2SAT 100
--- NOTE | 2020-09-29 21:39 | PHA.MEDREC ---
Pharmacy Consult ? Medication Reconciliation Pharmacy has completed the medication reconciliation. Patient does not want to speak with any males
--- NOTE | 2020-09-29 22:25 | PC.NURSE ---
HOSPITALIST IN ROOM FOR EVAL.
--- NOTE | 2020-09-29 22:45 | P.HPHOSP_ITS ---
History of Present Illness Date of Service: 09/29/20 Chief Complaint: confusion This is a 35-year-old biological male who prefers the pronouns of them/they and goes by the name of Jamshid who was brought into the hospital after by standard noticed that she was confused at the gas station. When I interviewed the pa tient she was alert, oriented to self and place but does not remember the event. She reports that she was feeling very anxious, felt like she was going to have a seizure and that is all she remembers. She does not remember having a seizure and she has stopped at the gas station because she was trying to get to [place]. She lives with her parents who are her healthcare proxy, ED PA discuss the case with her family, and her family reported that the patient usually gets these spells and they are psychiatric episodes and related to personality behavior. Patient has significant PICA were she eats strange items in the ED she was noted to eat gauze as well as tele electrode lead. She also history of esophageal perforation as a child after ingesting some luck with chemical and is currently feeds herself through a G-tube. She reports that she feed herself baby formula boluses. She does not like taking food p.o. but seldom agrees to it. Patient also endorses suicidal ideation and severe depression. Denies any plan to hurt herself. Of note patient does have history of seizure disorder but they took themselves of medication about 4 weeks ago as they say that they have not had any seizures for 4 weeks. Patient was on Keppra. On arrival to the ED her vitals within normal limit Labs reviewed show WBC count of 5.8, hemoglobin of 12.5 otherwise unremarkable. UA negative, UDS negative, She had extensive imaging including a head and cervical spine CT which showed no acute intracranial pathology and no acute fracture malalignment in the cervical spine. Her chest CT showed a left-sided complex collection in the posterior chest which extends from the level of the diaphragm all the way up into the region of the cervical esophagus on the left neck, but a communication with the pharynx is not seen with certainty. Within this collection there appears to be a metallic and possibly plastic foreign body. Thoracic surgery was contacted and this finding was discussed, they would like patient to be admitted and evaluated with a swallow study. Review of Systems Review of Systems: Yes all other systems are reviewed and are negative [facility] Medical History (Updated 09/30/20 @ 05:54 by Padmini Solano MD) Bipolar disorder Borderline personality disorder Esophageal perforation History of seizure disorder Pica in adults Social History Advance Directives: No Advance Directives Information Provided: Yes Meds Allergies Allergy/AdvReac Type Severity Reaction Status Date / Time No Known Allergies Allergy Verified 09/29/20 13:06 Active Medications: Current Medications Generic Name Dose Route Start Last Admin Trade Name Freq PRN Reason Stop Dose Admin Pharmacy Consult 1 each 09/29/20 21:25 Consult Rx Perform Med Rec MISCELLANE ONCE PRN Consult order Home Medications Medication Instructions Recorded Confirmed Last Taken Type No Known Home Meds 09/29/20 09/29/20 Unknown History Physical Exam Vital Signs and Narrative: Vital Signs: Last Vital Signs Temp 98.5 F 09/29/20 12:49 Pulse 95 09/29/20 12:49 Resp 19 09/29/20 12:49 BP 112/75 09/29/20 12:49 Pulse Ox 98 09/29/20 12:49 Body Mass Index 20.3 Const: Other: Very fidgety, looking for items to ingest, not making any eye contact General: cooperative and no acute distress Orientation/consciousness: oriented to person and oriented to place Eyes: General: appearance normal, both eyes and all related structures Resp: Effort & Inspection: normal respiratory effort and able to speak in complete sentences Cardio: Rate: regular rate Rhythm: regular rhythm GI: Palpation (GI): Soft to palpation Auscultation: normal bowel sounds Skin: General skin exam: no rashes or lesions noted Neuro: General: oriented to person and oriented to place Extrem: General: Yes normal to inspection and Yes no pedal edema Psych: Other: Anxious Results Labs CBC and Chem 7: 09/29/20 14:32 09/29/20 14:31 Labs: Laboratory Results - last 24 hr 09/29/20 09/29/20 09/29/20 12:45 13:54 13:54 MCV MCH MCHC RDW Plt Count MPV Immature Gran % (Auto) Neut % (Auto) Lymph % (Auto) [place] % (Auto) Eos % (Auto) Baso % (Auto) Lymph # (Auto) [place] # (Auto) Eos # (Auto) Baso # (Auto) Abs Immat Gran (auto) Absolute Neuts (auto) Absolute Nucleated RBC Nucleated RBC % (auto) Smear Tech's Comments Anion Gap Estim Creat Clear Calc Estimated GFR POC Glucose 110 Random Glucose Calcium Magnesium Total Bilirubin AST ALT Alkaline Phosphatase Ammonia B-Natriuretic Peptide Total Protein Albumin Lipase Urine Color YELLOW Urine Appearance CLEAR Urine pH 7.0 Ur Specific [place] 1.010 Urine Protein NEG Urine Glucose (UA) NEG Urine Ketones NEG Urine Blood NEG Urine Nitrite NEG Ur Leukocyte Esterase NEG Urine Test NEGATIVE Salicylates Urine Opiates Screen Acetaminophen Ur Barbiturates Screen Ur Phencyclidine Scrn Ur Amphetamines Screen U Benzodiazepines Scrn Urine Cocaine Screen U Marijuana (THC) Screen Ethyl Alcohol Coronavirus (PCR) Influenza Type A (PCR) Influenza Type B (PCR) RSV RNA Qual (PCR) 09/29/20 09/29/20 09/29/20 13:55 14:31 14:31 MCV MCH MCHC RDW Plt Count MPV Immature Gran % (Auto) Neut % (Auto) Lymph % (Auto) [place] % (Auto) Eos % (Auto) Baso % (Auto) Lymph # (Auto) [place] # (Auto) Eos # (Auto) Baso # (Auto) Abs Immat Gran (auto) Absolute Neuts (auto) Absolute Nucleated RBC Nucleated RBC % (auto) Smear Tech's Comments Anion Gap 14 Estim Creat Clear Calc 85.0 Estimated GFR > 60 POC Glucose Random Glucose 97 Calcium 9.8 Magnesium 2.1 Total Bilirubin 0.3 AST 15 ALT 13 Alkaline Phosphatase 78 Ammonia B-Natriuretic Peptide Total Protein 8.1 H Albumin 4.6 Lipase 14 Urine Color Urine Appearance Urine pH Ur Specific [place] Urine Protein Urine Glucose (UA) Urine Ketones Urine Blood Urine Nitrite Ur Leukocyte Esterase Urine Test Salicylates < 5.0 L Urine Opiates Screen Not Detected Acetaminophen < 1 Ur Barbiturates Screen Not Detected Ur Phencyclidine Scrn Not Detected Ur Amphetamines Screen Not Detected U Benzodiazepines Scrn Not Detected Urine Cocaine Screen Not Detected U Marijuana (THC) Screen Not Detected Ethyl Alcohol Coronavirus (PCR) Influenza Type A (PCR) Influenza Type B (PCR) RSV RNA Qual (PCR) 09/29/20 09/29/20 09/29/20 14:31 14:31 14:31 MCV MCH MCHC RDW Plt Count MPV Immature Gran % (Auto) Neut % (Auto) Lymph % (Auto) [place] % (Auto) Eos % (Auto) Baso % (Auto) Lymph # (Auto) [place] # (Auto) Eos # (Auto) Baso # (Auto) Abs Immat Gran (auto) Absolute Neuts (auto) Absolute Nucleated RBC Nucleated RBC % (auto) Smear Tech's Comments Anion Gap Estim Creat Clear Calc Estimated GFR POC Glucose Random Glucose Calcium Magnesium Total Bilirubin AST ALT Alkaline Phosphatase Ammonia B-Natriuretic Peptide 11 Total Protein Albumin Lipase Cancelled Urine Color Urine Appearance Urine pH Ur Specific [place] Urine Protein Urine Glucose (UA) Urine Ketones Urine Blood Urine Nitrite Ur Leukocyte Esterase Urine Test Salicylates Urine Opiates Screen Acetaminophen Ur Barbiturates Screen Ur Phencyclidine Scrn Ur Amphetamines Screen U Benzodiazepines Scrn Urine Cocaine Screen U Marijuana (THC) Screen Ethyl Alcohol < 10 Coronavirus (PCR) Influenza Type A (PCR) Influenza Type B (PCR) RSV RNA Qual (PCR) 09/29/20 09/29/20 09/29/20 14:32 14:32 14:33 MCV 93.5 MCH 30.0 MCHC 32.1 RDW 12.7 Plt Count 170 MPV Not Reportable Immature Gran % (Auto) 0.2 Neut % (Auto) 82.0 H Lymph % (Auto) 11.6 L [place] % (Auto) 5.5 Eos % (Auto) 0.2 Baso % (Auto) 0.5 Lymph # (Auto) 0.7 L [place] # (Auto) 0.3 Eos # (Auto) 0.0 Baso # (Auto) 0.0 Abs Immat Gran (auto) 0.01 Absolute Neuts (auto) 4.7 Absolute Nucleated RBC 0.000 Nucleated RBC % (auto) 0.0 Smear Tech's Comments VERIFIED Anion Gap Estim Creat Clear Calc Estimated GFR POC Glucose Random Glucose Calcium Magnesium Total Bilirubin AST ALT Alkaline Phosphatase Ammonia 30 B-Natriuretic Peptide Total Protein Albumin Lipase Urine Color Urine Appearance Urine pH Ur Specific [place] Urine Protein Urine Glucose (UA) Urine Ketones Urine Blood Urine Nitrite Ur Leukocyte Esterase Urine Test Salicylates Urine Opiates Screen Acetaminophen Ur Barbiturates Screen Ur Phencyclidine Scrn Ur Amphetamines Screen U Benzodiazepines Scrn Urine Cocaine Screen U Marijuana (THC) Screen Ethyl Alcohol Coronavirus (PCR) NEGATIVE Influenza Type A (PCR) NEGATIVE Influenza Type B (PCR) NEGATIVE RSV RNA Qual (PCR) NEGATIVE Imaging Radiologist's Impressions: Impressions Cervical Spine CT 09/29/20 13:08 IMPRESSION: 1. No acute intracranial pathology. 2. No acute fracture or malalignment in the cervical spine. 3. Abnormal lateral translation of the cervical esophagus into the left lateral superficial soft tissues, most likely the result of prior surgery. Chest CT 09/29/20 13:09 IMPRESSION: 1. There is a collection in the chest described above which goes from the level of the diaphragm to the level of the cervical esophagus. Differential diagnosis is discussed above in the Pericardium/Pleura section. The clinical/surgical history is critical in this case. The most likely diagnosis may be that the patient underwent a modified thoracoplasty using some kind of implant to fill the potential pleural space. 2. Gastrostomy tube in good position. 3. Other incidental findings, as described above. This critical result was discussed with Tarah Bailey NP at 5:30 PM on the day of the exam, and it was ascertained that the content and urgency of the report was understood at the time of direct communication. Head CT 09/29/20 13:09 IMPRESSION: 1. No acute intracranial pathology. 2. No acute fracture or malalignment in the cervical spine. 3. Abnormal lateral translation of the cervical esophagus into the left lateral superficial soft tissues, most likely the result of prior surgery. Abdomen/Pelvis CT 09/29/20 16:24 IMPRESSION: 1. There is a collection in the chest described above which goes from the level of the diaphragm to the level of the cervical esophagus. Differential diagnosis is discussed above in the Pericardium/Pleura section. The clinical/surgical history is critical in this case. The most likely diagnosis may be that the patient underwent a modified thoracoplasty using some kind of implant to fill the potential pleural space. 2. Gastrostomy tube in good position. 3. Other incidental findings, as described above. This critical result was discussed with Tarah Bailey NP at 5:30 PM on the day of the exam, and it was ascertained that the content and urgency of the report was understood at the time of direct communication. Chest X-Ray 09/29/20 17:39 IMPRESSION: Given the fact that the patient swallowed an EKG lead and this is now within the collection seen in the chest which can infer that the patient had some kind of interposition graft between the oropharynx and the stomach. In the CT report, I stated that the most likely diagnosis would be a spacer after some kind of thoracoplasty, but this would not be the case given the above finding. 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 A suspected perforation with an associated left hydropneumothorax, possibly related to an ingested foreign body is better depicted on dedicated CT imaging of the chest. Chest X-Ray 09/29/20 19:24 IMPRESSION: No acute pulmonary findings. Lucency in the medial aspect of the left hemithorax corresponds to the colonic interposition graft or patulous esophagus, better seen on the prior chest CT . Assessment and Plan (1) Altered mental status: Status: Acute (2) Abnormal CT of the chest: Status: Acute (3) Suicidal behavior: Status: Acute 35-year-old female with past medical history of bipolar/personality disorder, as well as seizure disorder presents to the hospital after being found confused. CT of the chest found possible foreign body, therefore patient is being admitted with consult thoracic surgery for swallow evaluation in a.m. # abnormal CT of the chest - CT of the chest findings as above concerning for foreign body presents - patient hemodynamically stable with no significant abnormality on labs or on vitals - given her psychiatric behavior patient will be admitted to medical floor as she may not be reliable to follow-up outpatient with thoracic and be evaluated with swallow eval # altered mental status - most likely postictal secondary to seizure - patient reports that she stop taking her seizure medications about 4 weeks ago as she had not had a seizure in 6 weeks - will resume her Keppra by IV as patient will be NPO for above reason # suicidal ideation - will consult crisis team - 1 on 1 sitter DVT prophylaxis: Early ambulation Quality Stroke Does the patient have a stroke diagnosis?: No VTE Prior VTE?: No VTE Risk Level:: Medical - low VTE Device Contraindication: Treatment Not Indicated VTE Drug Contraindication: Treatment Not Indicated
[2020-09-30] VITALS (8 sets, daily range): BP systolic 98–116; BP diastolic 62–79; PULSE 56–86; RESP 16–18; TEMP 36–36.6; O2SAT 97–100; BMI 20.3
--- NOTE | 2020-09-30 01:30 | PC.NURSE ---
REPORT CALLED TO FLOOR. PT TO FLOOR AT THIS TIME.
--- NOTE | 2020-09-30 06:30 | PC.NURSE ---
Phlebotomy reported Lactic acid not drawn yesterday while patient in ED. Dr. Kessler via cortext reordering lactic to be drawn now not necessary
[2020-09-30 08:27] LABS: MANUAL DIFF FLAG NO
--- NOTE | 2020-09-30 08:28 | P.CONGS_ITS ---
History of Present Illness Consult details Consult date: 09/30/20 Reason for consult: other (Question of FB) Narrative: This is a 35 year old transgender patient with a significant psychiatric history and esophageal reconstruction history who was brought to the ER by EMS yesterday after being noticed to be confused at a gas station. Patient was essentially nonverbal on arrival therefore workup including lab testing and CT scans. At some point, unknown exactly when in comparison to the scans, patient had swallowed some gauze and a telemetry lead while in the ER after being found to be drooling and pointing at her throat. Eventually patient brought up at least some of the gauze, but did not regurgitate the telemetry lead. Lab testing did not reveal anything significant. CT chest was read as left-sided complex collection in the posterior chest which extends from the level of the diaphragm all the way up to the region of the cervical esophagus on the left neck, but a communication with the pharynx is not seen with certainty. Within this collection, there appears to be a metallic and possibly plastic foreign body seen . Patient was non-septic appearing and in no distress. Did endorse some suicidal ideation, however, without a plan. Admitted to the medicine service for crisis intervention and a swallow study in the morning per my recommendation. This morning the patient is verbal and appears somewhat knowledgeable about their medical history, but does not answer questions in full detailed sentences. Without having official operative reports, etc from my conversation with the patient it sounds like they had a caustic ingestion as a child requiring what I can guess is an esophageal resection initially with cervical esophagostomy cre ation leading to esophageal reconstruction with a colonic interposition graft which was done at [facility] per their report. Patient states she has been able to eat since this surgery, but had a feeding tube placed in 2019 because they found a latex glove which turned into cement so I was not getting enough nutrition to my brain and has been feeding herself solely through this tube since then. Per ER staff discussion with patient's family they have had an aversion to any oral intake since at least this time. At time of my visit the patient denies any neck pain, chest pain, abdominal pain/distention, fever, chills, odynophagia or dysphasia of saliva (as patient refuses other oral intake). Patient states she had been tolerating her tube feeds (uses soy baby formula) without any issue or abdominal complaints. Review of Systems Constitutional: Constitutional: Denies chills, Denies fever(s) and Denies headache(s) ENT: Denies dysphagia, Denies headache(s), Denies neck pain, Denies odynophagia, Denies sore throat and Denies throat swelling Cardiovascular: Cardiovascular: Denies Abdominal Distension, Denies chest pain, Denies leg edema and Denies dyspnea Respiratory: Respiratory: Denies cough, Denies hemoptysis, Denies dyspnea and Denies stridor Gastrointestinal: Gastrointestinal: Denies abdominal pain, Denies change in bowel habits, Denies dysphagia, Denies odynophagia and Denies vomiting Genitourinary: Genitourinary: Denies difficulty urinating Musculoskeletal: Musculoskeletal: Denies neck pain Neurologic: Denies headache(s) Allergic/Immunologic: Allergic/Immunologic: Denies throat swelling [facility] Past Medical History Medical History (Updated 09/30/20 @ 05:54 by Padmini Solano MD) Bipolar disorder Borderline personality disorder Esophageal perforation History of seizure disorder Pica in adults Social History Social History Household Members: Adopted Family Housing: Unknown / Unable to assess Do you presently have visiting nurse or other home services: No Unable to assess alcohol history related to: Unable to respond Patient Tobacco Use Status: Never used Tobacco Smoked in Last 30 Days: No e-Cigarette/Vaping Use: Never Used Patient Interested in Nicotine Replacement: No Patient Given Instructions on How to Stop Smoking: No Second Hand Smoke Exposure: No Use of substances other than those prescribed or required for medical reasons: Unknown Currently Displaying Signs/Symptoms of Drug Intoxication Withdrawal: No Have you been hit, kicked, punched, or otherwise hurt by someone within the past year? If so, by whom?: No Do you feel safe in your current relationship?: No Current Relationship Is there a partner from a previous relationship who is making you feel unsafe now?: No Are you made to feel afraid or neglected: No Advance Directives: No Advance Directives Information Provided: Yes Advance Directives on File: No Do you have thoughts of harming others: None Do you have a plan to hurt others: No Plan Recently lost weight without trying: Unsure How much weight loss: Unsure Eating poorly because of decreased appetite: No Nutrition screen score: 4 Nutrition Risks: No Nutritional Risk and Receiving home tube feeding or CPN Poor oral hygiene: No service: No Meds Allergies Allergy/AdvReac Type Severity Reaction Status Date / Time No Known Allergies Allergy Verified 09/29/20 13:06 Active Medications: Current Medications Generic Name Dose Route Start Last Admin Trade Name Freq PRN Reason Stop Dose Admin Acetaminophen 650 mg 09/30/20 01:54 Acetaminophen 325 Mg Tablet PO Q6H PRN Pain, Mild (Pain Scale 1-3) Levetiracetam 500 mg in 100 mls @ 400 mls/hr 09/30/20 06:00 09/30/20 08:10 Keppra IV Not Given Q12H LUCERO Ondansetron HCl 4 mg 09/30/20 01:54 Ondansetron Hcl 4 Mg/2 Ml Vial IVPUSH Q8H PRN Nausea and Vomiting Pharmacy Consult 1 each 09/29/20 21:25 Consult Rx Perform Med Rec MISCELLANE ONCE PRN Consult order Sodium Chloride 3 ml 09/30/20 01:54 09/30/20 08:12 0.9 % Sodium Chloride Flush 3 Ml Syringe IVFLUSH Not Given QSHIFT [facility] Home Medications Medication Instructions Recorded Confirmed Last Taken Type No Known Home Meds 09/29/20 09/29/20 Unknown History Physical Exam Vital Signs: Vital Signs: Last Vital Signs Temp 96.8 F 09/30/20 07:42 Pulse 61 09/30/20 07:42 Resp 17 09/30/20 07:42 BP 98/63 09/30/20 07:42 Pulse Ox 99 09/30/20 07:42 Body Mass Index 20.3 General: No acute distress, resting in bed, thin, fidgeting throughout my visit Head: Normocephalic, atraumatic, symmetric Eyes: Sclera anicteric, eyelids without edema or erythema ENT: Oral mucosa and tongue are moist without lesions or exudates Neck: Soft, supple, symmetric, trachea midline, no crepitus, no mass visualized or palpated. Well healed scar over left neck. Cardiovascular: Regular rate and rhythm, no murmur/rubs/gallops, BUE and BLE without edema Respiratory: Lungs CTA B over anterior lung blankenship, breathing nonlabored, speaking in full sentences, on room air. No use of accessory muscles. Multiple well healed scars bilateral chest wall. Gastrointestinal: Soft, non-tender, non-distended, +normoactive bowel sounds. Feeding tube in place with light bilious drainage within tubing. Skin: Warm and dry throughout, no rashes Lymphatic: no cervical, supraclavicular, infraclavicular lymphadenopathy noted Results Labs Result diagrams: 09/30/20 08:23 09/30/20 08:23 Labs: Abnormal lab results 09/29/20 09/29/20 09/29/20 Range/Units 14:31 14:31 14:32 RBC 4.17 L (4.20-5.50) X10*6/uL Neut % (Auto) 82.0 H (45-73) % Lymph % (Auto) 11.6 L (20-40) % Lymph # (Auto) 0.7 L (1.2-4.9) X10*3/uL Total Protein 8.1 H (6.5-8.0) g/dL Salicylates < 5.0 L (15-30) mg/dL Short CBC 09/29/20 Range/Units 14:32 WBC 5.8 (4.8-10.8) X10*3/uL Hgb 12.5 (12.0-16.0) g/dl Hct 39.0 (37-47) % Plt Count 170 (160-400) X10*3/uL BMP 09/29/20 14:31 Sodium 141 Potassium 4.0 Chloride 105 Carbon Dioxide 26 BUN 9 Creatinine 0.90 Calcium 9.8 Liver Function 09/29/20 Range/Units 14:31 Total Bilirubin 0.3 (0.0-1.0) mg/dL AST 15 (5-31) U/L ALT 13 (0-31) U/L Alkaline Phosphatase 78 (39-117) U/L Albumin 4.6 (3.5-5.0) g/dL Urine 09/29/20 09/29/20 Range/Units 13:54 13:54 Urine Color YELLOW Urine Appearance CLEAR Urine pH 7.0 (5.0-8.0) Ur Specific [place] 1.010 (1.005-1.025) Urine Protein NEG (NEG-TRACE) MG/DL Urine Glucose (UA) NEG (NEG) MG/DL Urine Test NEGATIVE (NEGATIVE) All other labs normal. Imaging Chest x-ray: image reviewed Abdomen CT scan report/results: image reviewed CT scan - chest: image reviewed Additional studies: CT Scan Report Signed EXAMINATION: CT CHEST, ABDOMEN AND PELVIS WITHOUT CONTRAST CLINICAL INFORMATION: Altered mental status with G-tube in place. COMPARISON: No pertinent prior studies are available for comparison. TECHNIQUE: Multidetector volumetric imaging was performed from the thoracic inlet through the pubic symphysis without IV contrast. Sagittal and coronal reformatted images were obtained on the technologist's workstation. This CT examination was performed using dose optimization techniques as appropriate, variously including the following: *Automated exposure control *Adjustment of mA and/or kV according to patient size (this includes techniques or standardized protocols for targeted exams where dose is matched to indication/reason for exam; i.e. extremities or head) *Use of iterative reconstruction technique DLP: 189 mGy-cm FINDINGS: CHEST: Lung: Bibasilar scarring is present. Mediastinum: No mediastinal or hilar lymphadenopathy seen. Central vascular structures are unremarkable. An air-filled esophagus is not seen Pericardium/Pleura: There is a left-sided complex collection in the posterior chest which extends from the level of the diaphragm all the way up into the region of the cervical esophagus on the left neck, but a communication with the pharynx is not seen with certainty. Within this collection, there appears to be a metallic and possibly plastic foreign body seen with the metallic component almost appearing as a snap about 1.2 cm in diameter. The other component measures 2.75 x 2.0 cm. Without knowing surgical history, differential diagnosis is a bit difficult. One possibility would be if this patient had prior pneumonectomy, and a spacer was used in the pleural space to fill the potential pleural space (e.g., see: https://[email or web address].org/article/[email or web address])[email or web address]/pdf . Differential diagnosis would also include hydropneumothorax/empyema with a posterior pleural collection measuring at least 8.4 x 4.0 x 12.0 cm containing fluid and air. Alternatively, this could represent some kind of colonic interposition with colon in the pleural space, however, it is a bit unusual to not have any surgical clips in the abdomen or pelvis and, in addition, a G-tube is in place. Correlation with the surgical history will be critical in this case, and an accurate diagnosis cannot really be given without knowing the surgical history. Chest Wall/Axilla: No chest wall masses or axillary adenopathy seen. ABDOMEN/PELVIS: Peritoneal Space: No significant free air or free fluid identified. Liver, Gallbladder, Biliary Tree: The liver is normal in size, shape, and attenuation. No focal hepatic lesion or biliary ductal dilatation is present. The gallbladder is unremarkable with no evidence of radiopaque gallstones, gallbladder wall thickening, or obvious pericholecystic inflammatory changes. Pancreas: Unremarkable. Spleen: Unremarkable. Adrenal Glands: Unremarkable. Kidneys and Ureters: The kidneys are normal in size, shape, and attenuation. No hydronephrosis, hydroureter, or calculi seen. No perinephric stranding. Bladder: Unremarkable. Gastrointestinal Tract: Gastrostomy tube is in good position within the stomach. See discussion regarding the possibility of colon in the pleural space and possible interposition between the pharynx and stomach. However, the entire colon appears to be in place within the abdomen and pelvis, and no suture lines are seen. Abdominal Wall: No significant hernia is appreciated. Lymph Nodes: No lymphadenopathy. Vascular: No aortic aneurysm is seen. The IVC appears unremarkable. PELVIC VISCERA: A 1.8 cm cyst is noted in the right ovary. The uterus is unremarkable. No free intraperitoneal fluid is present. OSSEUS STRUCTURES: Artifact is present which appears to mimic a humeral fracture. No acute osseous injuries are seen. There are some deformity seen in the left-sided ribs which may be indicative of prior thoracotomy. CT/CT chest wo con IMPRESSION: 1. There is a collection in the chest described above which goes from the level of the diaphragm to the level of the cervical esophagus. Differential diagnosis is discussed above in the Pericardium/Pleura section. The clinical/surgical history is critical in this case. The most likely diagnosis may be that the patient underwent a modified thoracoplasty using some kind of implant to fill the potential pleural space. ? 2. Gastrostomy tube in good position. ? 3. Other incidental findings, as described above. ? This critical result was discussed with Tarah Bailey NP at 5:30 PM on the day of the exam, and it was ascertained that the content and urgency of the report was understood at the time of direct communication. Assessment and Plan (1) Abnormal CT of the chest: Status: Acute 35 year old transgender patient with significant psychiatric and esophageal reconstruction history who presented with altered mental status found to have a question of foreign body on CT chest. * Based on the size/shape of the object and the information that the patient swallowed a telemetry lead and gauze while in the ER the foreign body seen on CT is most likely the telemetry lead within, what I can surmise, is the colonic interposition graft from their previous esophageal reconstruction. * Recommended a barium swallow to a) evaluate esophageal anatomy given lack of medical records, and b) ensure there is no communication within the left pleural space. However patient is adamantly refusing the swallow study despite my best efforts to convince them it may aide with continued evaluation. * Will check CXR today to see if the foreign body has migrated. * Would recommend GI consultation to evaluate whether the FB needs to be removed via endoscopy. * No need for surgical intervention from a thoracic perspective at this time. Case discussed with Dr. Rader. Thank you for the consultation. (2) Altered mental status: Status: Acute (3) Suicidal behavior: Status: Acute Procedures Date of Service Date of Service: 09/30/20
[2020-09-30 08:30] LABS: Basophils Percent Auto 0.5 % (0-2); Hematocrit 38.6 % (42-52); Hemoglobin 12.5 g/dl (14.0-18.0); Imm Gran Abs Auto 0.01 X10*3/uL (0.00-0.03); Imm Gran Pct Auto 0.2 % (0.0-0.4); Lymphocytes Absolute Auto 0.9 X10*3/uL (1.2-4.9); Mean Corpuscular HGB Conc 32.4 g/dl (31.0-36.0); Mean Corpuscular Volume 92.6 fL (80-98); Mean Platelet Volume 9.3 fL (9.4-12.4); Monocytes Absolute Auto 0.5 X10*3/uL (0.1-1.2); Monocytes Percent Auto 7.6 % (2-11); Neutrophils Absolute Auto 4.6 X10*3/uL (2.0-8.3); Neutrophils Percent Auto 76.7 % (45-73); Platelet Count 337 X10*3/uL (160-400); Red Blood Count 4.17 X10*6/uL (4.60-5.80); Red Cell Distribution Width 12.8 % (11.0-16.0); White Blood Count 6.1 X10*3/uL (4.8-10.8)
[2020-09-30 09:08] LABS: Anion Gap 12 (12-20); Blood Urea Nitrogen 9 mg/dL (9-16); Calcium 9.8 mg/dL (8.4-10.2); Carbon Dioxide 28 mmol/L (22-29); Chloride 105 mmol/L (96-108); Creatinine Clr Calc Pharmacy 113.8; Estimated Glomerular Filt Rate > 60; Glucose Random 94 mg/dL (60-115); Sodium 141 mmol/L (135-145)
[2020-09-30 10:42] LABS: Alanine Aminotransferase 13 U/L (0-40); Aspartate Amino Transferase 15 U/L (5-37)
--- NOTE | 2020-09-30 11:30 | MHC.CLN ---
RE: CONSULT FOR BOLUS TF: RECOMMEND JEVITY 1.0 BOLUS FEEDING 300CC 6 X /DAY WITH 120CC FREE WATER FLUSH Q SHIFT TO PROVIDE 1908KCALS (32KCALS/KG), 80G PROTEIN (1.35G/KG), 1863CC TOTAL WATER FROM FORMULA AND FLUSHES (31.5ML/KG) MONITOR TOLERANCE, RESIDUALS AND LYTES SEE ALSO CLINICAL NUTRITION ASSESSMENT
--- NOTE | 2020-09-30 11:31 | MHC.CM.PN ---
CARL 09/30/20, EMR REVIEWED, PT ADMITTED W/POSSIBLE FOREIGN BODY AFTER INGESTING A EKG LEAD AND GAUZE, CM ATTEMPTED TO MEET W/PT THIS AM AFTER PT HAD WALKED BACK TO BED FROM , PT REFUSED TO RESPOND TO CM AND CLOSED EYES, CM CONTACTED PT'S MOTHER SENIA MACIAS AT 11:15AM [phone] WE HAVE NO HX ON PT, PER MOM PT IS INDEPENDENT, HAS NO DME OTHER THAN GTUBE, PER MOM THERE IS NO REASON FOUND THAT PT CANNOT EAT BY MOUTH AND THAT SHE CHOOSES TO USE GTUBE INSTEAD, PT HAS NO PCP, NO NEUROLOGIST AND NO PSYCH SERVICES SHE HAS RECENTLY RETURNED TO [facility] FROM [place] AFTER 18 MOS, PT WAS INPT PSYCH AT [facility] FOR THE LAST YEAR OF HER STAY IN [place] AND THE HOSPITAL HAD CALLED PT'S MOTHER TO COME AND GET HER AND BRING HER HOME SINCE THEY ARE UNABLE TO D/C PT'S TO STREET. ACCORDING TO PT'S MOTHER THEY WERE CONCERNED PT WOULD BE A LONG TERMER. PER PT'S MOTHER PT HAS HAD SEVERAL INPT PSYCH STAYS IN PREVIOUS YEARS HOWEVER IT HAD BEEN QUITE SOME TIME PRIOR TO HER INPT STAY IN [place]. PER PT'S MOTHER PT HAD DRIVEN TO NE TO FIND A PLACE IN THE WORLD FOR HERSELF AND PT HAD CALLED TO TELL HER SHE WANTED TO COME HOME, ACCORDING TO PT'S MOTHER PT HAD NOT EATEN AND WAS WEAK AND STOPPED AT [employer]AS [employer]ATION WHEN A BYSTANDER CALLED AN AMBULANCE. PT'S MOTHER WOULD LIKE TO PICK PT UP [place] [facility]. PT HAS NO CURRENT PCP, NEUROLOGIST OR PSYCH PROVIDERS, PT HAS MEDICARE AND HAS APPLIED FOR [place] MEDICAID HOWEVER THAT HAS NOT GONE THROUGH. D/C PLAN; HOME VS PSYCH BED SEARCH, FAMILY VS BLS TRANSPORT.
[2020-09-30 11:42] LABS: Red Blood Count 4.17 X10*6/uL (4.60-5.80)
[2020-09-30 11:44] LABS: Mean Corpuscular HGB Conc 32.1 g/dl (31.0-36.0)
[2020-09-30 11:45] LABS: Hemoglobin 12.5 g/dl (14.0-18.0)
--- NOTE | 2020-09-30 12:25 | PC.NURSE ---
pt refusing iv keppra , pt stating I don't want it, i don't want it , i don't want it , No no, No , no . Md made aware , no further issues .
--- NOTE | 2020-09-30 12:51 | P.PNIM_ITS ---
Subjective Subjective Date of Service: 10/01/20 Interval History: Sitting on bed awake and alert, refusing to take Keppra due to side effect of sedation, refusing to eat by mouth, denies nausea vomiting abdominal pain, complaining of mild intermittent headache. Review of Systems General no headache, no fever chills. CVS no chest pain, no palpitation. Respiratory no cough, no sob. Gastrointestinal no nausea, no vomiting, no abdominal pain Physical Exam Vital Signs: Vital Signs: Last Vital Signs Temp 97.0 F 09/30/20 11:17 Pulse 56 09/30/20 11:17 Resp 18 09/30/20 11:17 BP 111/62 09/30/20 11:17 Pulse Ox 98 09/30/20 11:17 Body Mass Index 20.3 General sitting comfortably ,in no acute distress. Neck supple no JVD. CVS regular rate rhythm, Respiratory lungs clear to auscultation, no respiratory distress Gastrointestinal abdomen soft, nontender, no guarding , no rigidity,g tube in place. Extremities no edema. Neuro nonfocal ,moving all 4 extremity, speech clear. Skin no rash Objective Data Current Medications Generic Name Dose Route Start Last Admin Trade Name Freq PRN Reason Stop Dose Admin Acetaminophen 650 mg 09/30/20 01:54 Acetaminophen 325 Mg Tablet PO Q6H PRN Pain, Mild (Pain Scale 1-3) Levetiracetam 500 mg in 100 mls @ 400 mls/hr 09/30/20 06:00 09/30/20 08:10 Keppra IV Not Given Q12H [facility] Ondansetron HCl 4 mg 09/30/20 01:54 Ondansetron Hcl 4 Mg/2 Ml Vial IVPUSH Q8H PRN Nausea and Vomiting Pharmacy Consult 1 each 09/29/20 21:25 Consult Rx Perform Med Rec MISCELLANE ONCE PRN Consult order Sodium Chloride 3 ml 09/30/20 01:54 09/30/20 08:12 0.9 % Sodium Chloride Flush 3 Ml Syringe IVFLUSH Not Given QSHIFT [facility] Labs CBC & Chem 7: 09/30/20 08:23 09/30/20 08:23 Labs: Laboratory Results - last 24 hr 09/29/20 09/29/20 09/29/20 12:45 13:54 13:54 MCV MCH MCHC RDW Plt Count MPV Immature Gran % (Auto) Neut % (Auto) Lymph % (Auto) [place] % (Auto) Eos % (Auto) Baso % (Auto) Lymph # (Auto) [place] # (Auto) Eos # (Auto) Baso # (Auto) Abs Immat Gran (auto) Absolute Neuts (auto) Absolute Nucleated RBC Nucleated RBC % (auto) Smear Tech's Comments Anion Gap Estim Creat Clear Calc Estimated GFR POC Glucose 110 Random Glucose Calcium Magnesium Total Bilirubin AST ALT Alkaline Phosphatase Ammonia B-Natriuretic Peptide Total Protein Albumin Lipase Urine Color YELLOW Urine Appearance CLEAR Urine pH 7.0 Ur Specific Ermine 1.010 Urine Protein NEG Urine Glucose (UA) NEG Urine Ketones NEG Urine Blood NEG Urine Nitrite NEG Ur Leukocyte Esterase NEG Urine Test NEGATIVE Salicylates Urine Opiates Screen Acetaminophen Ur Barbiturates Screen Ur Phencyclidine Scrn Ur Amphetamines Screen U Benzodiazepines Scrn Urine Cocaine Screen U Marijuana (THC) Screen Ethyl Alcohol Coronavirus (PCR) Influenza Type A (PCR) Influenza Type B (PCR) RSV RNA Qual (PCR) 09/29/20 09/29/20 09/29/20 13:55 14:31 14:31 MCV MCH MCHC RDW Plt Count MPV Immature Gran % (Auto) Neut % (Auto) Lymph % (Auto) [place] % (Auto) Eos % (Auto) Baso % (Auto) Lymph # (Auto) [place] # (Auto) Eos # (Auto) Baso # (Auto) Abs Immat Gran (auto) Absolute Neuts (auto) Absolute Nucleated RBC Nucleated RBC % (auto) Smear Tech's Comments Anion Gap 14 Estim Creat Clear Calc 85.0 Estimated GFR > 60 POC Glucose Random Glucose 97 Calcium 9.8 Magnesium 2.1 Total Bilirubin 0.3 AST 15 ALT 13 Alkaline Phosphatase 78 Ammonia B-Natriuretic Peptide Total Protein 8.1 H Albumin 4.6 Lipase 14 Urine Color Urine Appearance Urine pH Ur Specific Ermine Urine Protein Urine Glucose (UA) Urine Ketones Urine Blood Urine Nitrite Ur Leukocyte Esterase Urine Test Salicylates < 5.0 L Urine Opiates Screen Not Detected Acetaminophen < 1 Ur Barbiturates Screen Not Detected Ur Phencyclidine Scrn Not Detected Ur Amphetamines Screen Not Detected U Benzodiazepines Scrn Not Detected Urine Cocaine Screen Not Detected U Marijuana (THC) Screen Not Detected Ethyl Alcohol Coronavirus (PCR) Influenza Type A (PCR) Influenza Type B (PCR) RSV RNA Qual (PCR) 09/29/20 09/29/20 09/29/20 14:31 14:31 14:31 MCV MCH MCHC RDW Plt Count MPV Immature Gran % (Auto) Neut % (Auto) Lymph % (Auto) [place] % (Auto) Eos % (Auto) Baso % (Auto) Lymph # (Auto) [place] # (Auto) Eos # (Auto) Baso # (Auto) Abs Immat Gran (auto) Absolute Neuts (auto) Absolute Nucleated RBC Nucleated RBC % (auto) Smear Tech's Comments Anion Gap Estim Creat Clear Calc Estimated GFR POC Glucose Random Glucose Calcium Magnesium Total Bilirubin AST ALT Alkaline Phosphatase Ammonia B-Natriuretic Peptide 11 Total Protein Albumin Lipase Cancelled Urine Color Urine Appearance Urine pH Ur Specific Ermine Urine Protein Urine Glucose (UA) Urine Ketones Urine Blood Urine Nitrite Ur Leukocyte Esterase Urine Test Salicylates Urine Opiates Screen Acetaminophen Ur Barbiturates Screen Ur Phencyclidine Scrn Ur Amphetamines Screen U Benzodiazepines Scrn Urine Cocaine Screen U Marijuana (THC) Screen Ethyl Alcohol < 10 Coronavirus (PCR) Influenza Type A (PCR) Influenza Type B (PCR) RSV RNA Qual (PCR) 09/29/20 09/29/20 09/29/20 14:32 14:32 14:33 MCV 93.5 MCH 30.0 MCHC 32.1 RDW 12.7 Plt Count 170 MPV COMMUNICATION SPEC Immature Gran % (Auto) 0.2 Neut % (Auto) 82.0 H Lymph % (Auto) 11.6 L [place] % (Auto) 5.5 Eos % (Auto) 0.2 Baso % (Auto) 0.5 Lymph # (Auto) 0.7 L [place] # (Auto) 0.3 Eos # (Auto) 0.0 Baso # (Auto) 0.0 Abs Immat Gran (auto) 0.01 Absolute Neuts (auto) 4.7 Absolute Nucleated RBC 0.000 Nucleated RBC % (auto) 0.0 Smear Tech's Comments VERIFIED Anion Gap Estim Creat Clear Calc Estimated GFR POC Glucose Random Glucose Calcium Magnesium Total Bilirubin AST ALT Alkaline Phosphatase Ammonia 30 B-Natriuretic Peptide Total Protein Albumin Lipase Urine Color Urine Appearance Urine pH Ur Specific [place]rmine Urine Protein Urine Glucose (UA) Urine Ketones Urine Blood Urine Nitrite Ur Leukocyte Esterase Urine Test Salicylates Urine Opiates Screen Acetaminophen Ur Barbiturates Screen Ur Phencyclidine Scrn Ur Amphetamines Screen U Benzodiazepines Scrn Urine Cocaine Screen U Marijuana (THC) Screen Ethyl Alcohol Coronavirus (PCR) NEGATIVE Influenza Type A (PCR) NEGATIVE Influenza Type B (PCR) NEGATIVE RSV RNA Qual (PCR) NEGATIVE 09/30/20 09/30/20 08:23 08:23 MCV 92.6 MCH 30.0 MCHC 32.4 RDW 12.8 Plt Count 337 D MPV 9.3 L Immature Gran % (Auto) 0.2 Neut % (Auto) 76.7 H Lymph % (Auto) 15.0 L [place] % (Auto) 7.6 Eos % (Auto) 0.0 Baso % (Auto) 0.5 Lymph # (Auto) 0.9 L [place] # (Auto) 0.5 Eos # (Auto) 0.0 Baso # (Auto) 0.0 Abs Immat Gran (auto) 0.01 Absolute Neuts (auto) 4.6 Absolute Nucleated RBC 0.000 Nucleated RBC % (auto) 0.0 Smear Tech's Comments Anion Gap 12 Estim Creat Clear Calc 113.8 Estimated GFR > 60 POC Glucose Random Glucose 94 Calcium 9.8 Magnesium Total Bilirubin AST ALT Alkaline Phosphatase Ammonia B-Natriuretic Peptide Total Protein Albumin Lipase Urine Color Urine Appearance Urine pH Ur Specific [place] Urine Protein Urine Glucose (UA) Urine Ketones Urine Blood Urine Nitrite Ur Leukocyte Esterase Urine Test Salicylates Urine Opiates Screen Acetaminophen Ur Barbiturates Screen Ur Phencyclidine Scrn Ur Amphetamines Screen U Benzodiazepines Scrn Urine Cocaine Screen U Marijuana (THC) Screen Ethyl Alcohol Coronavirus (PCR) Influenza Type A (PCR) Influenza Type B (PCR) RSV RNA Qual (PCR) Assessment and Plan (1) Abnormal CT of the chest: Status: Acute (2) Altered mental status: Status: Acute Assessment and Plan: 35-year-old female with past medical history of bipolar/personality disorder, as well as seizure disorder presents to the hospital after being found confused.? CT of the chest found possible foreign body, therefore patient is being admitted with consult thoracic surgery for swallow evaluation in a.m. # abnormal CT of the chest with history of Pica/foreign body ingestion - patient with significant psychiatric history and esophageal reconstruction history presented with altered mental status patient swallowed a telemetry lead and gauze while in the ER the foreign body seen on CT is most likely the telemetry lead ,a suspected perforation with an associated left hydropneumothorax, possibly related to an ingested foreign body can be better depicted on dedicated CT imaging of the chest.,patient evaluated by thoracic surgery they recommended barium swallow however patient declined to undergo testing therefore chest x-ray was obtained that shows atelectasis, chronic scarring and there is increased lucency in the left upper lobe likely due to postsurgical changes, patient seen by Gastroenterology they also recommending barium swallow or CT chest with IV and by mouth contrast . Will rediscuss with patient to undergo above testing. # transient episode of unresponsiveness - most likely postictal secondary to seizure - patient reports that she stop taking her seizure medications about 4 weeks ago, she has not had a seizure in 6 weeks, patient refusing to take Keppra due to side effects Try to convince patient but she is adamant not to take the medication, will continue seizure precaution will discuss further care with family,obtain neuro consult # suicidal ideation continue sitter obtain crisis consult # bipolar disorder/borderline personality disorder/autism patient not on any medications follow clinical course # nutrition patient has G tube she is refusing to eat by mouth obtain nutrition consultation ,they recommend Jevity bolus feeding 300 cc 6 times per day with 120 cc free water flushes Q shift DVT prophylaxis:? Early ambulation Quality Stroke Does the patient have a stroke diagnosis?: No VTE Prior VTE?: No VTE Risk Level:: Medical - low VTE Device Contraindication: Treatment Not Indicated VTE Drug Contraindication: Treatment Not Indicated
[2020-09-30] MEDS: 0.9 % Sodium Chloride Flush 3 ML SYRINGE IVFLUSH ×2 (15:18→22:44)
--- NOTE | 2020-09-30 15:44 | P.CNGI_ITS ---
History of Present Illness Data of Consult Service Date: 09/30/20 Requesting physician: Edna Segura Primary Care Provider: Nonstaff Physician HPI Reason for consult: ? FB ingestion Pt brought to [facility] ED yesterday after she was found by bystanders. Pt answers minimally to questions and hx obtained by review of Medical records and from patient's Mom: Patient presenting to the ED via EMS after she was found down by bystanders at [address] [place] [address] and she was nonverbal and exhibiting abnormal behaviors therefore EMS brought her here for further evaluation and treatment.? On arrival patient reported to the male provider that she did not want males taking care of her therefore I went in and she is verbal but very vague she does not speak in complete sentences she continues to say ?she she she she?.? There are no signs of trauma.? She is alert.? Neck is nontender and patient has full range of motion and supple.? No meningeal signs.? Lungs are? clear to auscultation. CV RRR.? No focal neuro deficits are noted.? She has a normal steady gait.? Therefore at this time will obtain labs, blood cultures, lactic acid, UA, drugs of abuse screen, salicylate level, aspirin level, CT scan of brain/cervical spine/chest and abdomen and pelvis.? Will attempt to contact EMS to see where exactly the patient was picked up and then contact the police to see if they can try to identify the patient.? Will re-evaluate. Mom tells me patient has a history of FB ingestions, bipolar, borderline personality disorder and some form of oral aversion. Currently transitioning female to male and goes by Jamshid/they/them. Has had top surgery. AT 25 months they ingested draino causing a FB perforation with subsequent resection with a piece of duodenum used in place. During that time they had a feeding tube pl aced. They have tolerated PO by mouth since then but 2 yrs ago ingested 4 latex gloves with subsequent removal. Since then oral aversion although able to eat/drink by mouth. Therefore food boluses w/ soy baby formula via GT. Jamshid makes their own medical decisions, does live with mom and dad. This weekend traveled to [place], [place] and was driving home today when they last spoke to them. I explained the reason for today's ER visit as well as the patient's clinical state of confusion. Mom tells me that Jamshid has these 'spells with confusion that typical last several hours then self-resolve. Not currently taking any medications. I explained we are waiting for imaging and will involve our CARE team. 191-Called into room. Patient spit out a 4X4 gauze and tells me she swallowed another one. I witnessed the gauze on the floor. She has a 1:1 sitter at this time. 1920-?There appear to be chronic changes of an esophagectomy with a colonic interposition repair that traverses the left neck into the thoracic outlet anterior to the neurovascular bundle. A suspected perforation with an associated left hydropneumothorax, possibly related to an ingested foreign body is better depicted on dedicated CT imaging of the chest I called patient's surgeon in [place] - Dr Deutsch at [phone] and left a message and requested patient's records Following information was obtained from patient's mother, Linda Carmen in [place] ([phone]). Patient ingested a caustic solution at age 25 months and had surgery with ? colonic or duodenal interposition at [facility]. She has a hx of PICA and ingests foreign bodies during psyche episodes She lives with her parents who are her healthcare proxy, ED PA discuss the case with her family, and her family reported that the patient usually gets these spells and they are psychiatric episodes and related to personality disorder. She was in [place] for 6 months, was homeless. She was in senior care for 6 months for tresspassing and then transferred to a psychiatric facility. She ingested gloves while in [place] and had to be removed after opening the G tube tract. She was being fed by mouth in the Psyche facility in [place] She returned home on 07/23/20 and has been fed by tube feedings Can take ice cream, popcorn and popsicles by mouth. Review of Systems Review of Systems: not obtainable due to non -cooperative patient PMFSH Past Medical History Medical History Bipolar disorder Borderline personality disorder Esophageal perforation History of seizure disorder Pica in adults Social History Social History Household Members: Adopted Family Housing: Unknown / Unable to assess Do you presently have visiting nurse or other home services: No Unable to assess alcohol history related to: Unable to respond Patient Tobacco Use Status: Never used Tobacco Smoked in Last 30 Days: No e-Cigarette/Vaping Use: Never Used Patient Interested in Nicotine Replacement: No Patient Given Instructions on How to Stop Smoking: No Second Hand Smoke Exposure: No Use of substances other than those prescribed or required for medical reasons: Unknown Currently Displaying Signs/Symptoms of Drug Intoxication Withdrawal: No Have you been hit, kicked, punched, or otherwise hurt by someone within the past year? If so, by whom?: No Do you feel safe in your current relationship?: No Current Relationship Is there a partner from a previous relationship who is making you feel unsafe now?: No Are you made to feel afraid or neglected: No Advance Directives: No Advance Directives Information Provided: Yes Advance Directives on File: No Suicidal Behavior: Self-injurious behavior Current/Past Psychiatric Disorders: Chronic mental illess, Mood disorder and Psychotic disorder Ricci Symptoms: Anxiety, Hopelessness, Impulsivity and Worthlessness Change in Treatment: Discharged from [facility] Access to Firearms: No Risk Factors Comment: pt states she wants to over dose on keppra and has made attempt in the past Do you have thoughts of harming others: None Do you have a plan to hurt others: No Plan Recently lost weight without trying: Unsure How much weight loss: Unsure Eating poorly because of decreased appetite: No Nutrition screen score: 4 Nutrition Risks: No Nutritional Risk and Receiving home tube feeding or CPN Poor oral hygiene: No service: No Meds Allergies Allergy/AdvReac Type Severity Reaction Status Date / Time No Known Allergies Allergy Verified 09/29/20 13:06 Active Medications: Current Medications Generic Name Dose Route Start Last Admin Trade Name Freq PRN Reason Stop Dose Admin Acetaminophen 650 mg 09/30/20 01:54 Acetaminophen 325 Mg Tablet PO Q6H PRN Pain, Mild (Pain Scale 1-3) Levetiracetam 500 mg in 100 mls @ 400 mls/hr 09/30/20 06:00 09/30/20 15:19 Keppra IV Not Given Q12H [facility] Ondansetron HCl 4 mg 09/30/20 01:54 Ondansetron Hcl 4 Mg/2 Ml Vial IVPUSH Q8H PRN Nausea and Vomiting Pharmacy Consult 1 each 09/29/20 21:25 Consult Rx Perform Med Rec MISCELLANE ONCE PRN Consult order Sodium Chloride 3 ml 09/30/20 01:54 09/30/20 15:18 0.9 % Sodium Chloride Flush 3 Ml Syringe IVFLUSH [address] [facility] Administration Home Medications Medication Instructions Recorded Confirmed Last Taken Type No Known Home Meds 09/29/20 09/29/20 Unknown History Physical Exam Vital Signs: Vital Signs: Last Vital Signs Temp 96.9 F 09/30/20 15:22 Pulse 66 09/30/20 15:22 Resp 18 09/30/20 15:22 BP 116/70 09/30/20 15:22 Pulse Ox 97 09/30/20 15:22 Body Mass Index 20.3 Patient refused to be examined Const: General: healthy appearing and no acute distress Nutritional Appearance: average body habitus Orientation/consciousness: patient oriented x3 Limitations: behavioral limitations and other limitations (non verbal due to psyche episode) HENMT: Head: Yes normal to inspection Ears: hearing grossly normal bilaterally Mouth: Normal oral and palatal mucosa present Eyes: Sclerae: sclerae normal Pupils: Equal, round and reactive pupils present Neck: Neck: Yes normal visual inspection Chest: Chest palpation & inspection: normal inspection of the chest Resp: Effort & Inspection: normal respiratory effort Auscultation: clear to auscultation bilaterally Cardio: Palpation: normal PMI Rate: regular rate Rhythm: regular rhythm Heart sounds: S1 normal heart sound present, S2 normal heart sound present and no murmurs GI: Palpation (GI): Soft to palpation, nontender and No hepatosplenomegaly present Auscultation: normal bowel sounds Rectal Exam - Male: Yes deferred Skin: General skin exam: no rashes or lesions noted Neuro: General: patient oriented x3, gait normal and moves all extremities Cranial nerves: Yes Equal, round and reactive pupils present Psych: Appearance: grossly normal Mental Status: mental status grossly normal Results Labs CBC & Chem 7: 09/30/20 08:23 09/30/20 08:23 Labs: Short CBC 09/29/20 09/30/20 Range/Units 14:32 08:23 WBC 6.1 (4.8-10.8) X10*3/uL Hgb 12.5 L 12.5 L (14.0-18.0) g/dl Hct 39.0 L 38.6 L (42-52) % Plt Count 337 D (160-400) X10*3/uL BMP 09/30/20 08:23 Sodium 141 Potassium 4.0 Chloride 105 Carbon Dioxide 28 BUN 9 Creatinine 0.77 Calcium 9.8 Liver Function 09/29/20 Range/Units 14:31 AST 15 (5-37) U/L ALT 13 (0-40) U/L Urine 09/29/20 Range/Units 13:54 Urine Color YELLOW Assessment and Plan (1) Abnormal CT of the chest: Status: Acute (2) Foreign body ingestion: Status: Acute (3) Gastrostomy status: Status: Acute 35 year old with bipolar and borderline personality disorder admitted with altered mental status and reported to ingest a 4X4 gauze and a sticky pad for the cardiac chest lead while in the ED. She spitted out the gauze and not the sticky pad. Pt is managing her secretions. Chest CT scan showed a suspected perforation with an associated left hydropneumothorax, Pt evaluated by the thoracic surgeron and a barium swallow was advised - which pt is refusing despite reassurances that her feeding tube will not be removed. It would be helpful to compare her current CT scan with a previous one - records have been requested from her surgeon's office in [place] RECOMMENDATIONS: 1. If pt continues to refuse a Barium swallow, repeat chest CT scan can be performed to rule out acute perforation. 2. If CT scan rules out perforation and shows a FB in the esophagus, she can be scheduled for an Upper Endoscopy for removal. Of note, pt is refusing all procedures at present. Procedures Date of Service Date of Service: 09/30/20
--- NOTE | 2020-09-30 16:04 | MHC.CM.PN ---
CM MET W/DR MAGALLANES IN GI WHO REPORTED SHE NEEDS MORE INFO TO MAKE A DECISION ON PLAN OF CARE, ERIBERTO DID PROVIDE DR MAGALLANES W/NAME & CONTACT NUMBER FOR [facility] WHO SAW PT IN THE LAST MONTH REGARDING HER GTUBE, DR MAGALLANES UNABLE TO SPEAK W/SURGEON DUE TO SURGEON BEING IN SURGERY HOWEVER THEY WILL FAX RECORDS TO [facility]. [facility] SURGEON DR. VERDIN [phone]
--- NOTE | 2020-09-30 16:36 | MHC.CARE ---
CARE Team to be re-consulted when medically clear for assessment.
[2020-09-30 20:30] LABS: Glucose, Whole Blood 82 mg/dL (60-115)
[2020-09-30] MEDS: Prochlorperazine Edisylate 10 MG/2 ML VIAL 5 MG IVPUSH (20:50)
[2020-09-30] MEDS: levETIRAcetam in NaCl (iso-os) 1,000 MG/100 ML PIGGYBACK 400 MG IV (20:51)
--- NOTE | 2020-09-30 20:53 | P.EN_ITS ---
Event Note Date of Service: 09/30/20 Event Note: A rapid response was called on the patient after she became unresp onsive. According to the sitter at bedside patient told her that she feels shaky and feels that she is about to have a seizure. She became rolled her eyes and became unresponsive. This lasted few minutes. On my arrival at the rapid response, patient was awake, attempted to order Ativan IV for the patient but she refused a stating that Ativan makes her feel sick and she does not like to take it. Patient did refuse her IV Keppra this morning. Patient now agreeable to take the IV Keppra. Otherwise hemodynamically stable. Neurology consult
--- NOTE | 2020-09-30 21:54 | PC.NURSE ---
rapid response called after RN called to the room by david, pt unresponsive, migelter stated that eyes were rolling back. pt remained unresponsive for a few minutes then started to respond stating she was tired . Dr. Solano ordered IV compazine for c/o nausea and vomiting, and IV Keppra ordered and administered. Vitals stable. Pt refused tube feeding greyt, states that the last tube feed that was given at 1700 was too much . pt has vomited several times since 7 PM. Aspiration precautions are in place. Will try again in the morning.
[2020-10-01 03:48] VITALS: BP 107/60; PULSE 55; RESP 14; TEMP 36.6; O2SAT 98
--- NOTE | 2020-10-01 06:01 | PC.NURSE ---
tube feeding bolus given at 0600 - pt only allowed me to give 120 ml of Jevity then refused anymore stating that she felt too full .
[2020-10-01 07:12] VITALS: BP 95/65; PULSE 63; RESP 18; TEMP 36.5; O2SAT 98
[2020-10-01] MEDS: levETIRAcetam in NaCl (iso-os) 1,000 MG/100 ML PIGGYBACK 400 MG IV (08:02)
[2020-10-01] MEDS: 0.9 % Sodium Chloride Flush 3 ML SYRINGE IVFLUSH ×2 (08:11→21:03)
--- NOTE | 2020-10-01 11:26 | P.CNNE_ITS ---
History of Present Illness Data of Consult Service Date: 10/01/20 Primary Care Provider: Nonstaff Physician DONNY Reason for consult: Question seizure disorder 35 years old transgender person who probably has complex neuropsychiatric history. At this time previous records were not available. I was asked to see because of suspicion of seizure disorder and an episode that happened last night when her eyes were rolled over and she was relatively unresponsive. But according to nurses when they talk that they should give her added when, she promptly woke up stating no Ativan. She had been on Keppra presumptively for seizure disorder. She was not able to provide any history because of lack of cooperation. [facility] Past Medical History Medical History (Updated 10/01/20 @ 11:30 by Arnol Chavez MD) Bipolar disorder Borderline personality disorder Esophageal perforation History of seizure disorder Pica in adults Social History Social History Household Members: Adopted Family Housing: Unknown / Unable to assess Do you presently have visiting nurse or other home services: No Unable to assess alcohol history related to: Unable to respond Patient Tobacco Use Status: Never used Tobacco Smoked in Last 30 Days: No e-Cigarette/Vaping Use: Never Used Patient Interested in Nicotine Replacement: No Patient Given Instructions on How to Stop Smoking: No Second Hand Smoke Exposure: No Use of substances other than those prescribed or required for medical reasons: Unknown Currently Displaying Signs/Symptoms of Drug Intoxication Withdrawal: No Have you been hit, kicked, punched, or otherwise hurt by someone within the past year? If so, by whom?: No Do you feel safe in your current relationship?: No Current Relationship Is there a partner from a previous relationship who is making you feel unsafe now?: No Are you made to feel afraid or neglected: No Advance Directives: No Advance Directives Information Provided: Yes Advance Directives on File: No Do you have thoughts of harming others: None Do you have a plan to hurt others: No Plan Recently lost weight without trying: Unsure How much weight loss: Unsure Eating poorly because of decreased appetite: No Nutrition screen score: 4 Nutrition Risks: No Nutritional Risk and Receiving home tube feeding or CPN Poor oral hygiene: No service: No Meds Allergies Allergy/AdvReac Type Severity Reaction Status Date / Time No Known Allergies Allergy Verified 09/29/20 13:06 Active Medications: Current Medications Generic Name Dose Route Start Last Admin Trade Name Kane PRN Reason Stop Dose Admin Acetaminophen 650 mg 09/30/20 01:54 Acetaminophen 325 Mg Tablet PO Q6H PRN Pain, Mild (Pain Scale 1-3) Levetiracetam 1,000 mg in 100 mls @ 400 mls/hr 09/30/20 21:00 10/01/20 08:26 Keppra IV Infused Q12H [facility] Infusion Pharmacy Consult 1 each 09/29/20 21:25 Consult Rx Perform Med Rec MISCELLANE ONCE PRN Consult order Prochlorperazine Edisylate 5 mg 09/30/20 20:39 09/30/20 20:50 Prochlorperazine Edisylate 10 Mg/2 Ml Vial IVPUSH 5 mg Q4H PRN Administration Nausea and Vomiting Sodium Chloride 3 ml 09/30/20 01:54 10/01/20 08:11 0.9 % Sodium Chloride Flush 3 Ml Syringe IVFLUSH 3 ml QSHIFT [facility] Administration Home Medications Medication Instructions Recorded Confirmed Last Taken Type No Known Home Meds 09/29/20 09/29/20 Unknown History Physical Exam Vital Signs: Vital Signs: Last Vital Signs Temp 97.7 F 10/01/20 07:12 Pulse 63 10/01/20 07:12 Resp 18 10/01/20 07:12 BP 95/65 10/01/20 07:12 Pulse Ox 98 10/01/20 07:12 Body Mass Index 20.3 Neuro: Other: When I arrived in the room she was called up with her body folded and eyes closed. When I said hello, she woke up open her eyes and started saying no man, no man. When I try to talk to her, she came out of her bed and started crawling on the floor to words bathroom. At that time agnieszka robins came and helped her. There was no obvious focal weakness. I was unable to do formal neurological examination. Results Labs CBC & Chem 7: 09/30/20 08:23 09/30/20 08:23 Labs: Short CBC 09/29/20 Range/Units 14:32 Hgb 12.5 L (14.0-18.0) g/dl Hct 39.0 L (42-52) % Noncontrast head CT did not reveal any significant abnormality. Microbiology Microbiology Results: Microbiology 09/29/20 14:31 Blood - Venous Blood Culture - Preliminary No growth after 24 hours. 09/29/20 14:31 Blood - Venous Blood Culture - Preliminary No growth after 24 hours. Assessment and Plan (1) Seizure disorder: Status: Acute 35 years old feminine looking person with a masculine name probably with complex underlying psychiatric and psychological history including possibility of seizure disorder. In this type of patients, there was fair possibility of nonepileptic seizure-like episodes. I am reasonably certain that this has been investigated in the past and instead of doing EEG, which she she might not be agreeable to, we should obtain her previous records. I was told that she had not like Keppra because of side effects. Sometimes Keppra type of medicines have behavioral side effects. I would suggest a psychiatric evaluation and changing Keppra to Depakote 250 mg 1 at night. If she would be willing, and EEG can be performed. Procedures Date of Service Date of Service: 10/01/20
[2020-10-01 12:00] VITALS: BP 101/68; PULSE 70; RESP 17; TEMP 36.6; O2SAT 98
--- NOTE | 2020-10-01 12:04 | MHC.CLN ---
TUBE FEEDING NURSE REPORTED THAT PATIENT VOMITED TUBE FEEDING THIS AM. NOTED THAT PATIENT ALLOWED ONLY 120 ML BOLUS AND REPORTED TO BE FULL. RD RECOMMENDS CHANGE TUBE FEEDING TO OSMOLITE 1.5 FROM JEVITY 1.0. OSMOLITE 1.5, BOLUS 300 ML 4 X DAILY TO PROVIDE 1200 ML FORMULA, 1800 KCAL (30.5 KCAL/KG), 75 G PROTEIN (1.27 G/KG). 914 ML FREE WATER. FLUSH 120 ML EACH SHIFT WITH TOTAL FREE WATER FROM FORMULA AND NLOEY=0075 ML (21.6 ML/KG). MONITOR TOLERANCE, RESIDUALS, AND LABS.
--- NOTE | 2020-10-01 14:44 | PC.NURSE ---
0800 , pt states that she has thoughts of killing herself . this rn asked if she had a plan , pt states she would overdose on keppra , 1-1 sitter in [address]lace for safety. pt resistant to iv keppra this am , after much negotiating and telling the patient we would let the patient shower after dose of keppra and holding pt hand until iv keppra finished, this rn was successful with finnishing iv dose of keppra .
--- NOTE | 2020-10-01 16:02 | PC.NURSE ---
PT REFUSED 1600 VITAL SIGNS
--- NOTE | 2020-10-01 16:50 | P.PNIM_ITS ---
Subjective Subjective Date of Service: 10/02/20 Interval History: Events from last night reviewed patient had a rapid response since she was found to be unresponsive, patient told the sitter that she feels shaky and is about to have a seizure she rolled her eyes and became unresponsive symptoms lasted for few minutes and patient became awake alert and refused to take Ativan. This morning patient agreed to take her IV Keppra after convincing for several minutes . Review of Systems General no headache, no dizziness, no fever chills. CVS no chest pain, no palpitation. Respiratory no cough, no sob. Gastrointestinal no nausea no vomiting, no abdominal pain,constipation Physical Exam Vital Signs: Vital Signs: Last Vital Signs Temp 97.9 F 10/01/20 12:00 Pulse 70 10/01/20 12:00 Resp 17 10/01/20 12:00 BP 101/68 10/01/20 12:00 Pulse Ox 98 10/01/20 12:00 Body Mass Index 20.3 General sitting comfortably ,in no acute distress,thin built.? Neck supple no JVD. CVS? regular rate rhythm, Respiratory lungs clear to auscultation, no respiratory distress Gastrointestinal abdomen soft, nontender, no guarding , no rigidity,g tube in place. Extremities no edema. Neuro nonfocal ,moving all 4 extremity, speech clear. Skin no rash Objective Data Current Medications Generic Name Dose Route Start Last Admin Trade Name Freq PRN Reason Stop Dose Admin Acetaminophen 650 mg 09/30/20 01:54 Acetaminophen 325 Mg Tablet PO Q6H PRN Pain, Mild (Pain Scale 1-3) Levetiracetam 1,000 mg in 100 mls @ 400 mls/hr 09/30/20 21:00 10/01/20 08:26 Keppra IV Infused Q12H [facility] Infusion Pharmacy Consult 1 each 09/29/20 21:25 Consult Rx Perform Med Rec MISCELLANE ONCE PRN Consult order Prochlorperazine Edisylate 5 mg 09/30/20 20:39 09/30/20 20:50 Prochlorperazine Edisylate 10 Mg/2 Ml Vial IVPUSH 5 mg Q4H PRN Administration Nausea and Vomiting Sodium Chloride 3 ml 09/30/20 01:54 10/01/20 15:12 0.9 % Sodium Chloride Flush 3 Ml Syringe IVFLUSH Not Given QSHIFT COUNT [facility]CLUDES [facility] Labs CBC & Chem 7: 09/30/20 08:23 09/30/20 08:23 Labs: Laboratory Results - last 24 hr 09/30/20 20:26 POC Glucose 82 Microbiology Microbiology Results: Microbiology 09/29/20 14:31 Blood Culture - Preliminary Blood - Venous No growth after 48 hours. 09/29/20 14:31 Blood Culture - Preliminary Blood - Venous No growth after 48 hours. Assessment and Plan (1) Autism disorder: Status: Acute (2) Schizoaffective disorder, bipolar type: Status: Acute (3) Psychotic disorder: Status: Acute (4) Seizure disorder: Status: Acute (5) Gastrostomy status: Status: Acute (6) Foreign body ingestion: Status: Acute (7) Suicidal behavior: Status: Acute Assessment and Plan: 35-year-old female with past medical history of bipolar/personality disorder, as well as seizure disorder presents to the hospital after being found confused.? CT of the chest found possible foreign body, therefore patient is being admitted with consult thoracic surgery for swallow evaluation in a.m. # abnormal CT of the chest with history of Pica/foreign body ingestion - patient with significant psychiatric history and esophageal reconstruction history presented with altered mental status ? patient swallowed a telemetry lead and gauze while in the ER the foreign body seen on CT is most likely the telemetry lead Patient remains hemodynamically stable, no chest pain, no shortness of breath continue to refuse to eat by mouth Ordered CT chest with contrast patient declined, patient refused to undergo barium swallow study Obtained psychiatric consultation for competency # transient episode of unresponsiveness - most likely postictal secondary to seizure vs behavioral issue Patient seen by Dr. Chavez he recommend to start Depakote 250 mg at bedtime, he feels that patient most likely has nonepileptic seizure-like episodes - patient reports that she stop taking her seizure medications about 4 weeks ago, due to side effects from Keppra continue seizure precaution ? # suicidal ideation continue sitter obtain crisis consult # bipolar disorder/borderline personality disorder/autism patient not on any medications obtain psych consult # nutrition ?? patient has G tube she is refusing to eat by mouth ?? obtain nutrition consultation , continue feeding as per corporate logistics manager recommendation DVT prophylaxis:? Early ambulation Quality Stroke Does the patient have a stroke diagnosis?: No VTE Prior VTE?: No VTE Risk Level:: Medical - low VTE Device Contraindication: Treatment Not Indicated VTE Drug Contraindication: Treatment Not Indicated
--- NOTE | 2020-10-01 17:49 | P.CNPS_ITS ---
History of Present Illness Date of Service: 10/01/20 Chief Complaint: Possible foregin body Reason for Consult: Refusing testing, question bipolar, autism. Requesting physician: Edna Segura Discussed with referring provider: Yes Sources of Information: patient interviewed, chart reviewed and crisis/core team assessment reviewed Additional Sources of Information: Spoke with patient's RN. Spoke with patient's mother, Linda Carmen, on telephone, to gather collateral information. HPI Narrative: Patient is a 35-year-old trans sexual patient who prefers pronouns of them/they, prefers to be called Jamshid. Was brought to this hospital ED, after a bystander had noticed that they were confused at the gas station. Patient is alert and oriented x2. When asked why they are in the hospital, patient stated ?I was trying to go to an autism program but was turned away ?. Patient does not recall seizure. Patient had been prescribed Keppra, but states they had not been taking it for over a month. Patient lives with parents in [place]. Patient's mother does report that her daughter has a history of psychotic episo jennifer, during which times she will swallow foreign objects. Patient has swallowed and electrode from ECG and a piece of gauze. Patient has since been able to cough up the gauze, but the electrode is still lodged. Patient is refusing to receive testing with an oral contrast, as she refuses to swallow at this time. Patient also wishes to leave A. Psychiatry has been asked to meet with patient regarding capacity to leave as well as refuse treatment. Past Psychiatric History: As per mother, patient has been given a diagnosis of autism as a child, with high functioning. Patient is capable of driving and has a license. 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 She had been sent to custodial, and then they sent her from there [facility] [place], where she spent approximately 1 year. Parents had been contacted by a psychiatrist at that facility in early July, and had asked them to please come to get her, as [place] will not discharge somebody without a disposition in place. Patient has been home since beginning of July, and mother reports that she has been doing very well, until recently, when she decided to drive to a program in [place], [place]. She states that she does have episodes where she may do unsafe behaviors, and has had multiple suicide attempts in the past. Patient has also had multiple psychiatric hospitalizations, including many hospitals located in [place] and [place], as well as this most recent stay in [place]. She reports that although she is patient's rep payee for her SSI, patient does not have a guardian or a healthcare proxy at this time. Patient does have a history of swallowing objects in the past. Mother reports that when patient was [id number], she accidentally ingested Draino, resulting in damage and subequent g-tube placement. She believes patient may have posttraumatic stress disorder surrounding this incident, and this may explain reason patient is hesitant to swallow food or medications. Mother reports that patient is only prescribed Keppra, and has no current psychiatric medications ordered. She does report multiple psychiatric diagnoses in the past, such as schizophrenia, borderline personality disorder, bipolar disorder, and autism. She states patient has never formally been diagnosed with PICA. When this conventional mortgage underwriter met with patient, patient reported that they do not want to go back to [place]. But that they want to leave [place] today. They stated that they are not actively suicidal, but states that they have been suicidal off and on since a young child. Patient was child-like at times during interview, and reverted to a young child's voice. They were able to answers some questions appropriately in full sentences, and then at other times would state ?me go?, or ?me go to playground and swing ?. They reported that ?I would like to chew on things ?, and ?I like to play with Legos ?. Patient was moving hands, stimming behaviour, throughout interview. Medical Evaluation Reviewed: Yes Personal & Social History: Patient was adopted at 3-day-old by her current parents. She resides with them in [place]. Patient has never worked, and collects SSI. 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 Her biological mother had been diagnosed with schizophrenia. patient has never met her biological father. Patient had traumatic injury at age 25 months when she swallowed drain now, and has had internal esophageal damage. Patient has had a G-tube since childhood. Patient is able to eat and drink, but has been refusing to do so for the past 6 months. Patient has had multiple psychiatric diagnoses in the past, including autism, borderline personality disorder, schizophrenia, oppositional-defiant disorder, and bipolar disorder. Patient has had multiple inpatient psychiatric hospitalizations in [place] and [place]. Patient does not have any current DMH or DDS services in place. 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 Review of Systems Review of Systems Yes Unobtainable due to mental status [facility] Medical History Bipolar disorder Borderline personality disorder Esophageal perforation History of seizure disorder Pica in adults Family History: Adopted at age 3 days. currently resides with adoptive parents. Biological mother schizophrenia. any other family history unknown. Social History: Raised by adoptive parents in [place], where she currently resides. Receives SSI, mother is rep payee. No legal guardian, no HCP. Substance History: unknown. Trauma History: accidental ingestion of Drano as a toddler, subsequent surgeries and permanent g-tube placement. Diagnostics Vital Signs (24Hr): Vital Signs - 24 hr 09/30/20 19:10 09/30/20 23:42 10/01/20 03:48 Temperature 97.5 F 97.8 F 98 F Pulse Rate 68 60 55 Respiratory Rate 18 16 14 Blood Pressure 111/62 114/79 107/60 Pulse Oximetry 100 98 98 10/01/20 07:12 10/01/20 12:00 Temperature 97.7 F 97.9 F Pulse Rate 63 70 Respiratory Rate 18 17 Blood Pressure 95/65 101/68 Pulse Oximetry 98 98 Body Mass Index 20.3 Labs Results: 09/30/20 08:23 09/30/20 08:23 Labs: Laboratory Results - last 48 hr 09/29/20 09/29/20 09/29/20 12:45 13:54 13:54 WBC RBC Hgb Hct MCV MCH MCHC RDW Plt Count MPV Immature Gran % (Auto) Neut % (Auto) Lymph % (Auto) Young % (Auto) Eos % (Auto) Baso % (Auto) Lymph # (Auto) Young # (Auto) Eos # (Auto) Baso # (Auto) Abs Immat Gran (auto) Absolute Neuts (auto) Absolute Nucleated RBC Nucleated RBC % (auto) Sodium Potassium Chloride Carbon Dioxide Anion Gap BUN Creatinine Estim Creat Clear Calc Estimated GFR POC Glucose 110 Random Glucose Calcium Magnesium AST ALT Ammonia B-Natriuretic Peptide Urine Color YELLOW Urine Test NEGATIVE Urine Opiates Screen Ethyl Alcohol Influenza Type A (PCR) 09/29/20 09/29/20 09/29/20 13:55 14:31 14:31 WBC RBC Hgb Hct MCV MCH MCHC RDW Plt Count MPV Immature Gran % (Auto) Neut % (Auto) Lymph % (Auto) Young % (Auto) Eos % (Auto) Baso % (Auto) Lymph # (Auto) Young # (Auto) Eos # (Auto) Baso # (Auto) Abs Immat Gran (auto) Absolute Neuts (auto) Absolute Nucleated RBC Nucleated RBC % (auto) Sodium Potassium Chloride Carbon Dioxide Anion Gap BUN Creatinine Estim Creat Clear Calc Estimated GFR POC Glucose Random Glucose Calcium Magnesium 2.1 AST 15 ALT 13 Ammonia B-Natriuretic Peptide Urine Color Urine Test Urine Opiates Screen Not Detected Ethyl Alcohol Influenza Type A (PCR) 09/29/20 09/29/20 09/29/20 14:31 14:31 14:32 WBC RBC 4.17 L Hgb 12.5 L Hct 39.0 L MCV MCH MCHC 32.1 RDW Plt Count MPV [employer]IOR INFORMAT[employer] DEVELOPER Immature Gran % (Auto) Neut % (Auto) Lymph % (Auto) Young % (Auto) Eos % (Auto) Baso % (Auto) Lymph # (Auto) Young # (Auto) Eos # (Auto) Baso # (Auto) Abs Immat Gran (auto) Absolute Neuts (auto) Absolute Nucleated RBC Nucleated RBC % (auto) Sodium Potassium Chloride Carbon Dioxide Anion Gap BUN Creatinine Estim Creat Clear Calc Estimated GFR POC Glucose Random Glucose Calcium Magnesium AST ALT Ammonia B-Natriuretic Peptide 11 Urine Color Urine Test Urine Opiates Screen Ethyl Alcohol < 10 Influenza Type A (PCR) 09/29/20 09/29/20 09/30/20 14:32 14:33 08:23 WBC 6.1 RBC 4.17 L Hgb 12.5 L Hct 38.6 L MCV 92.6 MCH 30.0 MCHC 32.4 RDW 12.8 Plt Count 337 D MPV 9.3 L Immature Gran % (Auto) 0.2 Neut % (Auto) 76.7 H Lymph % (Auto) 15.0 L Young % (Auto) 7.6 Eos % (Auto) 0.0 Baso % (Auto) 0.5 Lymph # (Auto) 0.9 L Young # (Auto) 0.5 Eos # (Auto) 0.0 Baso # (Auto) 0.0 Abs Immat Gran (auto) 0.01 Absolute Neuts (auto) 4.6 Absolute Nucleated RBC 0.000 Nucleated RBC % (auto) 0.0 Sodium Potassium Chloride Carbon Dioxide Anion Gap BUN Creatinine Estim Creat Clear Calc Estimated GFR POC Glucose Random Glucose Calcium Magnesium AST ALT Ammonia 30 B-Natriuretic Peptide Urine Color Urine Test Urine Opiates Screen Ethyl Alcohol Influenza Type A (PCR) NEGATIVE 09/30/20 09/30/20 08:23 20:26 WBC RBC Hgb Hct MCV MCH MCHC RDW Plt Count MPV Immature Gran % (Auto) Neut % (Auto) Lymph % (Auto) Young % (Auto) Eos % (Auto) Baso % (Auto) Lymph # (Auto) Young # (Auto) Eos # (Auto) Baso # (Auto) Abs Immat Gran (auto) Absolute Neuts (auto) Absolute Nucleated RBC Nucleated RBC % (auto) Sodium 141 Potassium 4.0 Chloride 105 Carbon Dioxide 28 Anion Gap 12 BUN 9 Creatinine 0.77 Estim Creat Clear Calc 113.8 Estimated GFR > 60 POC Glucose 82 Random Glucose 94 Calcium 9.8 Magnesium AST ALT Ammonia B-Natriuretic Peptide Urine Color Urine Test Urine Opiates Screen Ethyl Alcohol Influenza Type A (PCR) Imaging Radiology Impressions: ITS Impressions Cervical Spine CT 09/29/20 13:08 IMPRESSION: 1. No acute intracranial pathology. 2. No acute fracture or malalignment in the cervical spine. 3. Abnormal lateral translation of the cervical esophagus into the left lateral superficial soft tissues, most likely the result of prior surgery. Chest CT 09/29/20 13:09 IMPRESSION: 1. There is a collection in the chest described above which goes from the level of the diaphragm to the level of the cervical esophagus. Differential diagnosis is discussed above in the Pericardium/Pleura section. The clinical/surgical history is critical in this case. The most likely diagnosis may be that the patient underwent a modified thoracoplasty using some kind of implant to fill the potential pleural space. 2. Gastrostomy tube in good position. 3. Other incidental findings, as described above. This critical result was discussed with Tarah Bailey NP at 5:30 PM on the day of the exam, and it was ascertained that the content and urgency of the report was understood at the time of direct communication. Head CT 09/29/20 13:09 IMPRESSION: 1. No acute intracranial pathology. 2. No acute fracture or malalignment in the cervical spine. 3. Abnormal lateral translation of the cervical esophagus into the left lateral superficial soft tissues, most likely the result of prior surgery. Abdomen/Pelvis CT 09/29/20 16:24 IMPRESSION: 1. There is a collection in the chest described above which goes from the level of the diaphragm to the level of the cervical esophagus. Differential diagnosis is discussed above in the Pericardium/Pleura section. The clinical/surgical history is critical in this case. The most likely diagnosis may be that the patient underwent a modified thoracoplasty using some kind of implant to fill the potential pleural space. 2. Gastrostomy tube in good position. 3. Other incidental findings, as described above. This critical result was discussed with Tarah Bailey NP at 5:30 PM on the day of the exam, and it was ascertained that the content and urgency of the report was understood at the time of direct communication. Chest X-Ray 09/29/20 17:39 IMPRESSION: Given the fact that the patient swallowed an EKG lead and this is now within the collection seen in the chest which can infer that the patient had some kind of interposition graft between the oropharynx and the stomach. In the CT report, I stated that the most likely diagnosis would be a spacer after some kind of thoracoplasty, but this would not be the case given the above finding. 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 A suspected perforation with an associated left hydropneumothorax, possibly related to an ingested foreign body is better depicted on dedicated CT imaging of the chest. Chest X-Ray 09/29/20 19:24 IMPRESSION: No acute pulmonary findings. Lucency in the medial aspect of the left hemithorax corresponds to the colonic interposition graft or patulous esophagus, better seen on the prior chest CT . Chest X-Ray 09/30/20 08:36 IMPRESSION: Increased lucency in the left upper lobe likely related to postsurgical changes. Mild atelectatic changes or scarring in both upper lobes and lower lobes.. Mental Status Exam Mental Status Exam Narrative: Well-developed, well-nourished female, appears younger than stated age. Continuous hand movements, Lying in chair with feet raised, sitter present in room. Patient was engageable, child-like during interview. Patient Appearance: Appropriate and Unkempt Patient Orientation: Person and Place Level of Consciousness: Alert Patient Behavior: Appropriate, Talkative, Resistive to Care, Distractible, Impulsive (biting blanket, redirected regarding putting objects in mouth. ) and Poor Eye Contact Mood Description: Depressed, Anxious and Labile (screaming when a male entered room. ) Affect Description: Depressed, Anxious and Labile (screamed when male entered room. ) Patient Cognition Impaired: Yes Ability to Follow Directions: Fair Speech Pattern: Coherent and Inappropriate (reverted to speech of a young child during encounter, mixed with appropriate speech. ) Memory Description: Immediate Impaired Hallucinations: None (denies any at this time, did not appaer to be responding to any internal stimuli. ) Delusions: Not Present Thought Process: Disoriented, Racing and Illogical Thought Content: positive for Perry, positive for Slowed Thinking, positive for Tangential, positive for Disorganized and positive for Suicidal Ideation (reports has had thoughts of self harm by OD on her keppra over the past month, says no SI currently ) Depressive Symptoms: Increased Anxiety Abnormal Motor Activity Signs and Symptoms: Restlessness (Displays stemming behaviors characteristic of ASD, such as moving hands restless picking at blanket etc..) Judgement: Poor Judgement and Insight: Patient displays little to no judgment and insight regarding severity of health condition. Medications Medications Current Medications Generic Name Dose Route Start Last Admin Trade Name Freq PRN Reason Stop Dose Admin Acetaminophen 650 mg 09/30/20 01:54 Acetaminophen 325 Mg Tablet PO Q6H PRN Pain, Mild (Pain Scale 1-3) Levetiracetam 1,000 mg in 100 mls @ 400 mls/hr 09/30/20 21:00 10/01/20 08:26 Keppra IV Infused Q12H [facility] Infusion Pharmacy Consult 1 each 09/29/20 21:25 Consult Rx Perform Med Rec MISCELLANE ONCE PRN Consult order Prochlorperazine Edisylate 5 mg 09/30/20 20:39 09/30/20 20:50 Prochlorperazine Edisylate 10 Mg/2 Ml Vial IVPUSH 5 mg Q4H PRN Administration Nausea and Vomiting Sodium Chloride 3 ml 09/30/20 01:54 10/01/20 15:12 0.9 % Sodium Chloride Flush 3 Ml Syringe IVFLUSH Not Given QSHIFT LUCERO Allergies Allergies Allergy/AdvReac Type Severity Reaction Status Date / Time No Known Allergies Allergy Verified 09/29/20 13:06 Assessment & Plan Assessment & Plan (1) Psychotic disorder: Qualifiers: Psychosis type: unspecified psychosis type Qualified Code(s): F29 - Unspecified psychosis not due to a substance or known physiological condition Status: Acute Code(s): F29 - Unspecified psychosis not due to a substance or known physiological condition Assessment and Plan: Patient appears to be experiencing some type of psychotic episode. Patient has reported multiple past suicide attempts and psychiatric admissions in the past for similar presentations. This information was confirmed with patient's mother when collecting collateral information. Mother does report that patient has a history of psychotic episodes, which during she will swallow foreign objects. Patient's mother reports that patient was not sent home from psychiatric facility in [place] with any psychiatric medications. (2) Schizoaffective disorder, bipolar type: Status: Acute Code(s): F25.0 - Schizoaffective disorder, bipolar type Assessment and Plan: Differential diagnosis of schizoaffective disorder bipolar type. (3) Autism disorder: Status: Acute Code(s): F84.0 - Autistic disorder Assessment and Plan: As per patient report and confirmation via mother, patient had been diagnosed with autism, high functioning, by a physician located in [place]. Mother is unclear as to what age this had occurred. Assessment and Plan: Patient appears to lack capacity to make decision to leave AMA at this time. Although they were able to state name, and that they are in a hospital, no further current understanding was evident. MAGALI assessment completed, with results demonstrating patient is not currently capable of decision-making capacity at this time. Patient was unable to understand the current medical situation regarding need for barium swallow to evaluate for perforation. Patient was also unable to understand the proposed treatment. Patient was unable to understand any alternatives to treatment. When asked if patient understood the consequences of refusing care or wishing to leave AMA. 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 At this time, Patient lacks capacity to leave AMA. Unless life-threatening, it has not been determined that patient lacks capacity to refuse barium swallow regarding perforation. This case has been discussed with both my supervising psychiatrist and Dr. Fernanda Segura while on unit. Thank you for this consultation. We will continue to follow this patient along with you. I will meet with patient tomorrow to discuss possibility of adding an antipsychotic, if willing. Greater than 50% of the session was spent on counseling and/or coordination of care
[2020-10-01 19:04] VITALS: BP 96/80; PULSE 76; RESP 14; TEMP 36.2; O2SAT 98
[2020-10-01 23:34] VITALS: BP 92/60; PULSE 71; RESP 14; TEMP 36.2; O2SAT 98
--- NOTE | 2020-10-02 03:01 | PC.NURSE ---
gave pt a tube feeding bolus at 2100, pt only allowed me to give 120 ml of osmolite, the only allowed me to give 60 ml of water flush.
[2020-10-02 03:41] VITALS: BP 92/59; PULSE 67; RESP 16; TEMP 36.2; O2SAT 97
[2020-10-02] MEDS: 0.9 % Sodium Chloride Flush 3 ML SYRINGE IVFLUSH ×3 (07:23→23:02)
[2020-10-02 07:43] VITALS: BP 90/63; PULSE 69; RESP 17; TEMP 36.6; O2SAT 97
--- NOTE | 2020-10-02 10:27 | P.EN_ITS ---
Event Note Date of Service: 10/02/20 Event Note: This science writer went to meet with patient at 10:10 today, however gera ent was leaving for [facility]UB x-ray. Will attempt to meet with them later today.
--- NOTE | 2020-10-02 10:27 | PM.EVENT ---
Event Note Date of Service: 10/02/20 Event Note: This fiction writer went to meet with patient at 10:10 today, however patient was leaving for [facility] x-ray. Will attempt to meet with them later today.
[2020-10-02 11:29] VITALS: BP 127/54; PULSE 59; RESP 19; TEMP 36.4; O2SAT 96
--- NOTE | 2020-10-02 12:09 | PC.NURSE ---
0730 pt states they are constipated , pt asking for something to help her go . ordered lactulose. this rn attempted to give pt medication and pt refused to take it , stating i don't like medicine . this RN educated how important the medicine is and multiple attempts made to administer the medication . Pt now stating i dont want feeding I only want my baby food . this rn will re attempt to administer lactulose .
--- NOTE | 2020-10-02 13:58 | MHC.CM.PN ---
PATIENT UNABLE TO PARTICIPATE IN IMM DELIVERY CONVERSATION. PATIENT ASKS CAN I COLOR PATIENT DOES STATE THE INSURANCE WAS MEDICARE AND [place] MED[place] AT ONE TIME. PATIENT ALSO STATES THAT MOTHER, SENIA, RECENTLY SUBMITTED DOCUMENTS FOR [place] REINSTATEMENT. WHEN ASKED WHEN THIS PROCESS OCCURRED, PATIENT STATES 'ABOUT 2 WEEKS AGO PATIENT WAS INFORMED OF THE RIGHT TO APPEAL A DISCHARGE DECISION, AND ALSO TOLD THAT ORIGINAL IMM WILL BE PLACED ON PATIENT'S CHART FOR SAFETY CONCERNS. \
--- NOTE | 2020-10-02 15:02 | P.PNIM_ITS ---
Subjective Subjective Date of Service: 10/02/20 Interval History: Patient awake alert complaining of constipation, refusing to take by mouth medication refusing to take medications through G-tube, refusing current formula wants to take baby formula and baby foods. Review of Systems SKIN TOGGLER no headache, no dizziness GI no nausea, no vomiting complaining of constipation no urinary symptoms of urgency frequency Respiratory no cough, no shortness of breath Physical Exam Vital Signs: Vital Signs: Last Vital Signs Temp 97.5 F 10/02/20 11:29 Pulse 59 10/02/20 11:29 Resp 19 10/02/20 11:29 BP 127/54 L 10/02/20 11:29 Pulse Ox 96 10/02/20 11:29 Body Mass Index 20.3 General sitting comfortably thin built, in no acute distress. Neck supple, no JVD. CVS regular rate rhythm, Respiratory lungs clear to auscultation, no respiratory distress, no wheeze, no rhonchi. Gastrointestinal abdomen soft, nontender, bowel sounds audible, G-tube in place no surrounding hyperemia. Extremities no edema. Neuro nonfocal , speech clear. Skin no rash Objective Data Current Medications Generic Name Dose Route Start Last Admin Trade Name Freq PRN Reason Stop Dose Admin Acetaminophen 650 mg 09/30/20 01:54 Acetaminophen 325 Mg Tablet PO Q6H PRN Pain, Mild (Pain Scale 1-3) Divalproex Sodium 250 mg 10/02/20 21:00 Divalproex Sodium 250 Mg Tablet. PO BEDTIME [facility] Lactulose 10 gm 10/02/20 13:59 Lactulose 20 Gm/30 Ml Solution G-TUBE DAILY PRN constipation Pharmacy Consult 1 each 09/29/20 21:25 Consult Rx Perform Med Rec MISCELLANE ONCE PRN Consult order Prochlorperazine Edisylate 5 mg 09/30/20 20:39 09/30/20 20:50 Prochlorperazine Edisylate 10 Mg/2 Ml Vial IVPUSH 5 mg Q4H PRN Administration Nausea and Vomiting Sodium Chloride 3 ml 09/30/20 01:54 10/02/20 07:23 0.9 % Sodium Chloride Flush 3 Ml Syringe IVFLUSH 3 ml QSHIFT [facility] Administration Labs CBC & Chem 7: 09/30/20 08:23 09/30/20 08:23 Microbiology Microbiology Results: Microbiology 09/29/20 14:31 Blood Culture - Preliminary Blood - Venous No growth after 48 hours. 09/29/20 14:31 Blood Culture - Preliminary Blood - Venous No growth after 48 hours. Assessment and Plan (1) Autism disorder: Status: Acute (2) Schizoaffective disorder, bipolar type: Status: Acute (3) Seizure disorder: Status: Acute (4) Gastrostomy status: Status: Acute (5) Foreign body ingestion: Status: Acute (6) Altered mental status: Status: Acute (7) Abnormal CT of the chest: Status: Acute (8) Suicidal behavior: Status: Acute Assessment and Plan: 35-year-old female with past medical history of bipolar/personality disorder, as well as seizure disorder presents to the hospital after being found confused.? CT of the chest found possible foreign body, therefore patient is being admitted with consult thoracic surgery for swallow evaluation in a.m. # abnormal CT of the chest with history of Pica/foreign body ingestion Repeat chest x-ray shows snap in stomach with no significant change in position since patient not eating by mouth since patient asymptomatic with no nausea, no vomiting, no abdominal pain or shortness of breath no further treatment is planned, and since patient is also not cooperative with any further testing will continue to follow with serial imaging study Case discussed with Dr. Lopez and Dr. Mijares they agree with above treatment plan ?? # transient episode of unresponsiveness - most likely postictal secondary to seizure vs behavioral issue ? Patient seen by Dr. Chavez he recommend to start Depakote 250 mg at bedtime, he feels that patient most likely has nonepileptic seizure-like episodes - patient reports that she stop taking her seizure medications about 4 weeks ago, due to side effects from Keppra ? continue seizure precaution, patient refusing to take medications by mouth and also through G-tube ? # bipolar disorder/borderline personality disorder/autism patient not on any medications seen by psych please refer to there detailed note, case discussed with psych, and informed them the patient is medically cleared for further psychiatric treatment. Patient has no suicidal ideation. # nutrition ?? patient has G tube she is refusing to eat by mouth ?? obtain nutrition consultation , continue feeding as per supervisor joiners recommendation DVT prophylaxis:? Early ambulation Quality Stroke Does the patient have a stroke diagnosis?: No VTE Prior VTE?: No VTE Risk Level:: Medical - low VTE Device Contraindication: Treatment Not Indicated VTE Drug Contraindication: Treatment Not Indicated
[2020-10-02 15:25] VITALS: BP 94/63; PULSE 66; RESP 12; TEMP 36.4; O2SAT 92
--- NOTE | 2020-10-02 15:38 | MHC.CM.PN ---
PATIENT TELLS THIS RN CLINICAL QUALITY I WANT TO GO WHEN ASKED WHAT PLAN THE PATIENT HAS, PATIENT REPLIES PRISON THIS RN CLINICAL QUALITY EXPLAINED THAT THE PROCESS FOR A PRISON SETTING IS DONE IN THE COMMUNITY AND NOT HERE IN THE ACUTE CARE SETTING. PATIENT IS AWARE THAT IF [place] MEDICAID IS SECURED, THAT THIS IS WHERE PATIENT WILL NEED TO START THE PROCESS. PATIENT REPLIES NO. I GO NOW CALL TO FATHERBASSAM @ [phone], WHO STATES THAT HE IS UNABLE TO ARRIVE TONIGHT. IS NOT HOME AND HE WILL DISCUSS THIS WHEN SHE ARRIVES AND HOPE TO TRANSPORT PATIENT TOMORROW. CALL TO [employer] ([phone]) WHO HAD ORIGINALLY REPORTED THAT PATIENT'S CAR WAS PARKED IN THE LOT OF [address] [facility] STATES THAT THE CAR HAS NOT BEEN TOWED BY [facility] AND MAY STILL BE AT [employer] [address]. CALL TO [employer] @ [phone]. PER CONVERSATION WITH TAX EXAMINING TECHNICIAN, CAR WAS TOWED TODAY BY [employer] [phone]. [facility] TO [facility], SAYS THAT THE CAR IS AT [address] [facility] PATIENT OR FAMILY WILL NEED TO CALL 30 MINS PRIOR TO ARRIVAL. THERE ARE NO KEYS OR ID WITH THE CAR. CURRENT COST TO [employer] CAR IS $160.60 UNTIL 1100 TOMORROW, THEN THE LOVING GOES UP BY $35/DAY. INFORMATION LEFT FOR PARENTS IN A VOICEMAIL @ [phone]
--- NOTE | 2020-10-02 16:16 | MHC.CM.PN ---
KEYS TO CAR FOUND IN ROOM. PATIENT REPORTS THAT WALLET IS IN CAR AND CAR IS LOCKED. PATIENT INFORMED THAT THIS SUBSTATION SUPERINTENDENT WAS TOLD THAT HERE IS NO WALLET OR ID IN THE CAR.
--- NOTE | 2020-10-02 16:33 | PC.NURSE ---
THIS RN HAS HAD MULTIPLE ATTEMPTS AT TRYING TO GIVE PT TUBE FEED AND LACTULOSE , PT CONTINUES TO REFUSE PT STATES I WANT MY BABY FORMULA . PT EDUCATED ON IMPORTANCE OF TUBE FEED , AND LACTULOSE .
[2020-10-02] MEDS: Lactulose 20 GM/30 ML SOLUTION 10 GM G-TUBE (17:50)
--- NOTE | 2020-10-02 18:30 | PC.NURSE ---
1800 PT CALLS ASKING FOR TUBE FEED AND LACTULOSE . PT ONLY ACCEPTED 150MLS OF TUBE FEED AND THIS RN SUCCESSFUL OF ADMINISTRATION OF LACTULOSE
[2020-10-02 19:17] VITALS: BP 95/75; PULSE 84; RESP 18; TEMP 36.6; O2SAT 97
[2020-10-02] MEDS: Divalproex Sodium Sprinkles 125 MG CAP.DR.SPR 250 MG PO (21:21)
[2020-10-02] MEDS: Prochlorperazine Edisylate 10 MG/2 ML VIAL 5 MG IVPUSH (22:57)
--- NOTE | 2020-10-02 23:49 | PC.NURSE ---
2130; Patient received bolus tube feed, 150 ml osmolite with 80mls water flush. Patient did not allow more, stating feeling full.
[2020-10-03 04:00] VITALS: BP 103/56; PULSE 62; RESP 16; TEMP 36.8; O2SAT 99
[2020-10-03 07:56] VITALS: BP 98/66; PULSE 79; RESP 17; TEMP 37; O2SAT 99
[2020-10-03 08:20] LABS: Glucose, Whole Blood 76 mg/dL (60-115)
--- NOTE | 2020-10-03 09:30 | P.CNPS_ITS ---
History of Present Illness Date of Service: 10/03/20 Chief Complaint: Possible foregin body Reason for Consult: assess for capacity for safe discharge planning Requesting physician: Edna Segura Discussed with referring provider: Yes Sources of Information: patient interviewed and chart reviewed HPI Narrative: This development writer met with patient at 08:30 today. Patient had been admitted for partial focal seizures, question pseudoseizures, and ingestion of foreign body. Since admission patient has been refusing care, not eating, not taking medications. At this time, patient is fully alert and oriented x4. States full name, full address, states that they understand they are in a hospital in [place], after being found with altered mental status at a gas station in [place]. MSE: Alert and oriented x4. Thin transgender individual, appears younger than stated age. Appropriate grooming. Eye contact within normal limits. No involuntary movements noted, motor activity,, posture within normal limits. Manner and behavior were calm, cooperative. Speech was fluent, unimpaired, fully articulate. Mood stable, no constriction or lability noted. Affect sligh tly anxious. Thought process logical, linear, goal directed. Thought content logical, no poverty of thought, no loose associations. No evidence of psychosis. No delusional thought noted. Patient did not appear to be responding to internal stimuli in any way, denies AH, denies VH, denies tactile hallucinations. Patient denies any thoughts of harm to self or others at this time. Patient appears to be fairly good historian, and responded to questions during encounter was logical, coherent answers, fully articulate speech. Past Psychiatric History: Asperger's/autism, PTSD, personality disorder with cluster B traits. Multiple inpatient psychiatric admissions, in [place] and [place], [place]. Medical Evaluation Reviewed: Yes Personal & Social History: Patient adopted at 3-day-old, lives with adoptive parents in [facility]. Currently receives SSI, mother is rep payee. Currently unemployed, history of volunteering with [employer]. Review of Systems Review of Systems Yes all other systems are reviewed and are negative Psychiatric: [facility] Medical History Bipolar disorder Borderline personality disorder Esophageal perforation History of seizure disorder Pica in adults Family History: Adopted at age 3 days. currently resides with adoptive parents. Biological mother schizophrenia. any other family history unknown. Social History: Raised by adoptive parents in [place], where she currently resides. Receives SSI, mother is rep payee. No legal guardian, no HCP. Substance History: unknown Trauma History: accidental ingestion of Drbharat as a toddler, subsequent surgeries and permanent g-tube placement. Diagnostics Vital Signs (24Hr): Vital Signs - 24 hr 10/02/20 11:29 10/02/20 15:25 10/02/20 19:17 Temperature 97.5 F 97.6 F 97.8 F Pulse Rate 59 66 84 Respiratory Rate 19 12 18 Blood Pressure 127/54 L 94/63 95/75 Pulse Oximetry 96 92 97 10/03/20 04:00 10/03/20 07:56 Temperature 98.2 F 98.6 F Pulse Rate 62 79 Respiratory Rate 16 17 Blood Pressure 103/56 L 98/66 Pulse Oximetry 99 99 Body Mass Index 20.3 Labs Results: 09/30/20 08:23 09/30/20 08:23 Labs: Laboratory Results - last 48 hr 10/03/20 08:15 POC Glucose 76 Imaging Radiology Impressions: ITS Impressions Cervical Spine CT 09/29/20 13:08 IMPRESSION: 1. No acute intracranial pathology. 2. No acute fracture or malalignment in the cervical spine. 3. Abnormal lateral translation of the cervical esophagus into the left lateral superficial soft tissues, most likely the result of prior surgery. Chest CT 09/29/20 13:09 IMPRESSION: 1. There is a collection in the chest described above which goes from the level of the diaphragm to the level of the cervical esophagus. Differential diagnosis is discussed above in the Pericardium/Pleura section. The clinical/surgical history is critical in this case. The most likely diagnosis may be that the patient underwent a modified thoracoplasty using some kind of implant to fill the potential pleural space. 2. Gastrostomy tube in good position. 3. Other incidental findings, as described above. This critical result was discussed with Tarah Bailey NP at 5:30 PM on the day of the exam, and it was ascertained that the content and urgency of the report was understood at the time of direct communication. Head CT 09/29/20 13:09 IMPRESSION: 1. No acute intracranial pathology. 2. No acute fracture or malalignment in the cervical spine. 3. Abnormal lateral translation of the cervical esophagus into the left lateral superficial soft tissues, most likely the result of prior surgery. Abdomen/Pelvis CT 09/29/20 16:24 IMPRESSION: 1. There is a collection in the chest described above which goes from the level of the diaphragm to the level of the cervical esophagus. Differential diagnosis is discussed above in the Pericardium/Pleura section. The clinical/surgical history is critical in this case. The most likely diagnosis may be that the patient underwent a modified thoracoplasty using some kind of implant to fill the potential pleural space. 2. Gastrostomy tube in good position. 3. Other incidental findings, as described above. This critical result was discussed with Tarah Bailey NP at 5:30 PM on the day of the exam, and it was ascertained that the content and urgency of the report was understood at the time of direct communication. Chest X-Ray 09/29/20 17:39 IMPRESSION: Given the fact that the patient swallowed an EKG lead and this is now within the collection seen in the chest which can infer that the patient had some kind of interposition graft between the oropharynx and the stomach. In the CT report, I stated that the most likely diagnosis would be a spacer after some kind of thoracoplasty, but this would not be the case given the above finding. 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 A suspected perforation with an associated left hydropneumothorax, possibly related to an ingested foreign body is better depicted on dedicated CT imaging of the chest. Chest X-Ray 09/29/20 19:24 IMPRESSION: No acute pulmonary findings. Lucency in the medial aspect of the left hemithorax corresponds to the colonic interposition graft or patulous esophagus, better seen on the prior chest CT . Chest X-Ray 09/30/20 08:36 IMPRESSION: Increased lucency in the left upper lobe likely related to postsurgical changes. Mild atelectatic changes or scarring in both upper lobes and lower lobes.. Chest X-Ray 10/02/20 10:41 IMPRESSION: Radiopaque foreign body seen retrocardiac location left lower lobe with appearance of a snap. This is similar appearance to study of September 30, 2020 and is noted to be lower in position than on study of September 29, 2020. This lies in region of left lower lobe disease. What appears to be chronic loculated left pneumothorax. Gastrostomy tube in place with no significant abnormality of the abdomen appreciated. KUB X-Ray 10/02/20 10:41 IMPRESSION: Radiopaque foreign body seen retrocardiac location left lower lobe with appearance of a snap. This is similar appearance to study of September 30, 2020 and is noted to be lower in position than on study of September 29, 2020. This lies in region of left lower lobe disease. What appears to be chronic loculated left pneumothorax. Gastrostomy tube in place with no significant abnormality of the abdomen appreciated. Medications Medications Current Medications Generic Name Dose Route Start Last Admin Trade Name Freq PRN Reason Stop Dose Admin Acetaminophen 650 mg 09/30/20 01:54 Acetaminophen 325 Mg Tablet PO Q6H PRN Pain, Mild (Pain Scale 1-3) Divalproex Sodium 250 mg 10/02/20 21:00 10/02/20 21:21 Divalproex Sodium Sprinkles 125 Mg PO 250 mg BEDTIME LUCERO Administration Lactulose 10 gm 10/02/20 13:59 10/02/20 17:50 Lactulose 20 Gm/30 Ml Solution G-TUBE 10 gm DAILY PRN Administration constipation Pharmacy Consult 1 each 09/29/20 21:25 Consult Rx Perform Med Rec MISCELLANE ONCE PRN Consult order Prochlorperazine Edisylate 5 mg 09/30/20 20:39 10/02/20 22:57 Prochlorperazine Edisylate 10 Mg/2 Ml Vial IVPUSH 5 mg Q4H PRN Administration Nausea and Vomiting Sodium Chloride 3 ml 09/30/20 01:54 10/02/20 23:02 0.9 % Sodium Chloride Flush 3 Ml Syringe IVFLUSH 3 ml QSHIFT [facility]UCERO Administration Allergies Allergies Allergy/AdvReac Type Severity Reaction Status Date / Time No Known Allergies Allergy Verified 09/29/20 13:06 Assessment & Plan Assessment & Plan (1) Autism disorder: Status: Acute Code(s): F84.0 - Autistic disorder Assessment and Plan: Patient and mother have reported diagnosis of autistic disorder, high functioning. (2) PTSD (post-traumatic stress disorder): Status: Acute Code(s): F43.10 - Post-traumatic stress disorder, unspecified Assessment and Plan: Patient and mother report history of PTSD. (3) Cluster B personality disorder: Status: Acute Code(s): F60.89 - Other specific personality disorders Assessment and Plan: Patient displays manifestations of personality disorder with cluster B traits. Patient states ?I am too Behavioral ? Assessment and Plan: This development writer met with patient this morning. Sitter was present in room. Patient was fully alert and oriented x4, good eye contact, able to converse fully with articulate speech. Patient states that they have a history of partial focal seizures, and that they have been told in the past that they may be pseudoseizures. Patient states that they had been taking Keppra for some time, but had made a decision to stop approximately 6 weeks ago. We discussed consequences of stopping anti seizure medication. Patient stated I know I can get hurt from stopping . When asked to clarify, patient stated ?it images my brain a little more each time I have a seizure ?. Patient then stated that they are aware that progression of seizures with no medication ?can be deadly at some point ?. Patient stated that even though understanding this information, is choosing to not take medication. We discussed in detail patient has a lack of nutritional intake and fluids while here. Patient reports that they prefer to use their home baby formula for G- tube feedings, as they mix it with water and it is much more tolerable. Patient states that the feeding here is heavier than my own formula, and makes my stomach uncomfortable . When asked if patient understands the consequences rega rding choosing to not receive adequate nutritional intake and fluids while here, patient stated ?I do want fluids and food here, and I am getting them here, just in very small amounts . They then stated that they prefer their own formula, and plan to give themselves a feeding as soon as they return to their car, where they have formula available. They use a powder formula, and add water. When asked about safety, patient denies any thoughts of harm to self or others at this time. They report that they would like to go to [facility] for residential treatment regarding eating disorders. They state they have a cnc machine programmer in [place], and have been speaking with her regarding this. This development writer encouraged them to continue discussing this with their cnc machine programmer as outpatient regarding treatment possibilities going forward. CONCLUSIONS / RECOMMENDATIONS: After meeting with patient, and discussing case with my supervising psychiatrist, it is concluded that there is no evidence of psychosis or illogical thought at this time. Patient is fully A&OX4 this morning, and was able to fully articulate the risks of refusing anti-seizure or psychiatric medications. Patient spoke in full, coherent, age-appropriate sentences during entire encounter. They were also able to fully articulate an understanding of the consequences of doing so, as well as the consequences of refusing fluids and tube feedings while here. Patient does have extensive psychiatric history, with reported diagnoses of autistic disorder, PTSD, and personality disorder (cluster B traits). However, patient denies any thought of harm to self or others at this time, and fully understands the consequences of refusing treatment. Although patient may have limited capacity to make decisions, they DO display the capacity to work on safe discharge planning with participation of family, at this moment, and be be discharged under the care of family. This has been shared with attending provider, Dr. Edna Segura. Thank you. Greater than 50% of the session was spent on counseling and/or coordination of care Patient educated on: diagnosis and medication risk/benefits Informed Consent: understands
[2020-10-03 12:00] VITALS: BP 103/60; PULSE 65; RESP 18; TEMP 36.6; O2SAT 100
--- NOTE | 2020-10-03 12:05 | MHC.CM.PN ---
PATIENT IS AGREEABLE TO SPEAKING WITH MOTHER SENIA. ROOM PHONE NUMBER LEFT WITH SENIA. PATIENT VERBALIZES UNDERSTANDING THAT PATIENT IS NOT ABLE TO BE DISCHARGED ALONE TO DRIVE HOME, SECONDARY TO SEIZURE ACTIVITY. PATIENT ALSO STATES THAT THEY HAVE BEEN TOLD THIS IN THE PAST. PLAN IS FOR DISCHARGE TO CARE OF MOTHER. TIME TO BE ARRANGED AND CASE MANAGEMENT TO BE NOTIFIED.
--- NOTE | 2020-10-03 12:15 | MHC.CM.PN ---
PER REQUEST OF MOTHER SENIA , CALL PLACED TO [facility] @ [phone]. MESSAGE LEFT FOR A CALL BACK TO THIS SHEET METAL WORK FURNACE INSTALLER. OUTGOING MESSAGE STATES THAT THIS IS A FEMALE ONLY RESIDENTIAL CENTER FOR UP TO AGE 26. MOTHER IS AWARE OF AGE AND GENDER OBSTACLES..
--- NOTE | 2020-10-03 12:23 | MHC.CLN ---
FOLLOW UP PATIENT ACCEPTING ONLY SMALL AMOUNTS OF TUBE FEEDING AND REFUSING MOST TUBE FEEDING AND WATER FLUSHES. REPORTED HX OF TAKING BABY FORMULA AND BABY FOOD THROUGH TUBE. ABLE TO TAKE PO BUT DECLINES. CURRENT TUBE FEED FORMULA IS OSMOLITE 1.5, A MORE CALORICALLY DENSE FORMULA THAN JEVITY 1.0. RD RECOMMENDS CONTINUE CURRENT TUBE FEED ORDER TO MEET PATIENT'S NUTRITIONAL NEEDS: OSMOLITE 1.5, BOLUS 300 ML 4 X DAILY TO PROVIDE 1200 ML FORMULA, 1800 KCAL (30.5 KCAL/KG), 75 G PROTEIN (1.27 G/KG). 914 ML FREE WATER. FLUSH 120 ML EACH SHIFT WITH TOTAL FREE WATER FROM FORMULA AND XSMTW=4337 ML (21.6 ML/KG). MONITOR TOLERANCE, RESIDUALS, AND LABS.
--- NOTE | 2020-10-03 13:37 | MHC.CM.PN ---
CALL FROM PATIENT'S MOM SENIA CONN ASKS THAT THE PHONE NUMBER FOR [facility] BE GIVEN TO PATIENT, FACILITY NEEDS TO CONVERSE WITH POTENTIAL CLIENT. PHONE NUMBER ([phone]) PRESENTED TO PATIENT, WHO TELLS THIS PRINCIPAL BIOSTATISTICIAN NO. I AM GOING HOME WITH MY MOM WHEN ASKED IF PATIENT WILL MAKE PLANS FOR OUTPATIENT SERVICES ON THEIR OWN, PATIENT REPLIES YES PHONE NUMBER FOR [facility] LEFT ON ONE OF PATIENT BELONGINGS. SITTER IN ROOM WTINESSED INTERACTION.
--- NOTE | 2020-10-03 15:02 | MHC.CM.PN ---
Addendum entered by Carolyn Marti RN 10/03/20 15:42: PT'S CM REPORTED SHE WILL FOLLOW-UP [facility] FOR BEHAVIORAL ISSUES & EATING D/O'S ON Tuesday10/06/20. Original Note: CM RECEIVED MESSAGE FROM CM RN CARDIAC THAT PT'S MOTHER WAS NOT COMING TO GET HER TONIGHT, CM CALLED PT'S MOM SENIA BACK AT NUMBER ON FILE AT 2:55PM TO CONFIRM A NEW CLERK GENERAL TIME, PER MOM THEY WILL BE HERE BY NOON TOMORROW AND WILL BE BRINGING PT AND PT'S CAR BACK TO [place], HOSPITALIST, SARAH AND CM DIRECTOR AWARE.
[2020-10-03 15:29] VITALS: BP 97/65; PULSE 60; RESP 18; TEMP 36.6; O2SAT 99
--- NOTE | 2020-10-03 16:09 | PC.NURSE ---
Per overnight RN patient refused 6am bolus tube feed. Allowed this RN to give 180ml @ 1030 along with 30ml flush, no gastric residual. At 1500 patient only allowed 60ml tube feed and 60ml flush, minimal gastric residual noted, patient comfortable, will continue to assess.
--- NOTE | 2020-10-03 16:31 | HO.PM.IMPN ---
Subjective Subjective Date of Service: 10/04/20 Interval History: Patient had another episode of seizure-like activity, rapid response was called, patient felt weak , was falling forward,eyes were rolled up, no loss of conscious, no jerky movement was noted, no tongue biting or incontinence symptoms lasted few minutes patient was able to communicate soon after the episodes. She continued to decline tube feedings and refusing to eat by mouth. Review of Systems PRIMARY CLINICIAN no headache, no dizziness GI no nausea, no vomiting, no abdominal pain no urinary symptoms of urgency, frequency Respiratory no cough, no shortness of breath Physical Exam Vital Signs: Vital Signs: Last Vital Signs Temp 97.9 F 10/03/20 15:29 Pulse 60 10/03/20 15:29 Resp 18 10/03/20 15:29 BP 97/65 10/03/20 15:29 Pulse Ox 99 10/03/20 15:29 Body Mass Index 20.3 General thin built, in no acute distress.? Neck supple, no JVD. CVS? regular rate rhythm, Respiratory lungs clear to auscultation, no respiratory distress, no wheeze, no rhonchi. Gastrointestinal abdomen soft, nontender, bowel sounds audible, G-tube in place no surrounding hyperemia. Extremities no edema. Neuro nonfocal , speech clear. Skin no rash Objective Data Current Medications Generic Name Dose Route Start Last Admin Trade Name Freq PRN Reason Stop Dose Admin Acetaminophen 650 mg 09/30/20 01:54 Acetaminophen 325 Mg Tablet PO Q6H PRN Pain, Mild (Pain Scale 1-3) Divalproex Sodium 250 mg 10/02/20 21:00 10/02/20 21:21 Divalproex Sodium Sprinkles 125 Mg PO 250 mg BEDTIME LUCERO Administration Lactulose 10 gm 10/02/20 13:59 10/02/20 17:50 Lactulose 20 Gm/30 Ml Solution G-TUBE 10 gm DAILY PRN Administration constipation Pharmacy Consult 1 each 09/29/20 21:25 Consult Rx Perform Med Rec MISCELLANE ONCE PRN Consult order Prochlorperazine Edisylate 5 mg 09/30/20 20:39 10/02/20 22:57 Prochlorperazine Edisylate 10 Mg/2 Ml Vial IVPUSH 5 mg Q4H PRN Administration Nausea and Vomiting Sodium Chloride 3 ml 09/30/20 01:54 10/03/20 15:31 0.9 % Sodium Chloride Flush 3 Ml Syringe IVFLUSH Not Given QSHIFT [facility] Labs CBC & Chem 7: 09/30/20 08:23 09/30/20 08:23 Labs: Laboratory Results - last 24 hr 10/03/20 08:15 POC Glucose 76 Assessment and Plan (1) PTSD (post-traumatic stress disorder): Status: Acute (2) Autism disorder: Status: Acute (3) Schizoaffective disorder, bipolar type: Status: Acute (4) Seizure disorder: Status: Acute (5) Gastrostomy status: Status: Acute (6) Foreign body ingestion: Status: Acute (7) Suicidal behavior: Status: Acute Assessment and Plan: 35-year-old female with past medical history of bipolar/personality disorder, as well as seizure disorder presents to the hospital after being found confused.? CT of the chest found possible foreign body, therefore patient is being admitted with consult thoracic surgery for swallow evaluation in a.m. # abnormal CT of the chest with history of Pica/foreign body ingestion ?? Repeat chest x-ray shows snap in colonic interposition,it has moved some in position, since patient asymptomatic with no nausea, no vomiting, no abdominal pain ?? or shortness of breath no further treatment is planned, if patient develops any pain or discomfort then will proceed with further testing # non epileptic seizure-like episodes, Patient had another episode of relative unresponsiveness, with eyes rolled up, patient was able to converse during the episode, no evidence of seizure-like activity noted, no tongue biting, no postictal state, blood sugars and vitals remained stable. ? Patient seen by Dr. Chavez for a prior similar episode,he recommend to start Depakote 250 mg at bedtime, he feels that patient most likely has nonepileptic seizure-like episodes patient reports that she stop taking her seizure medications about 4 weeks ago, due to side effects from Keppra ? continue seizure precaution, patient refusing to take medications by mouth and also through G-tube. ? # bipolar disorder/borderline personality disorder/autism patient not on any medications seen by psych today and they found no evidence of psychosis or illogical thought at this time, She is noted to be fully Awake alert X4 and was able to fully articulate the risks of refusing anti-seizure or psychiatric medications.? Patient spoke in full, coherent, age-appropriate sentences during entire encounter and was also able to fully articulate an understanding of the consequences of doing so, as well as the consequences of refusing? fluids and tube feedings while here. Patient does have extensive psychiatric history, with reported diagnoses of autistic disorder, PTSD, and personality disorder (cluster B traits). However, patient denies any thought of harm to self or others at this time, and fully understands the consequences of refusing treatment.? Although patient may have limited capacity to make decisions, psych feels she display capacity To work on safe discharge planning with participation of family , they recommend to discharge her with family # nutrition No malnutrition ?? patient has G tube she is refusing to eat by mouth, also refusing G-tube feeding, spoke with patient's mom in detail, patient is status post esophageal surgery at age 5 the patient At age 25 months she ingested draino, received treatment at [facility] in [place] initially her esophagus was repaired and she was fed with G-tube but she developed esophageal rupture And underwent esophageal surgery with colonic interposition subsequently she was able to eat by mouth, but several months ago she swallowed plastic gloves and had to have a G-tube placed to remove the gloves and since then patient is feeding herself baby formula via G-tube, patient also has issues with regurgitating food even 24 hours after eating that makes her More anxious about taking food by mouth, has been seen by industry consultant in [place] therefore recommend her to continue outpatient follow-up to maximize her calorie intake. ?? DVT prophylaxis:? Early ambulation Quality Stroke Does the patient have a stroke diagnosis?: No VTE Prior VTE?: No VTE Risk Level:: Medical - low VTE Device Contraindication: Treatment Not Indicated VTE Drug Contraindication: Treatment Not Indicated
[2020-10-03 16:40] LABS: Glucose, Whole Blood 81 mg/dL (60-115)
--- NOTE | 2020-10-03 17:35 | PC.NURSE ---
At 1730 sitter reported patient had seizure like activity and one bout of emesis. MD made aware no new orders, will hold bolus feedings. Patient now clean and sitting up in bed will continue to monitor.
[2020-10-03 19:46] VITALS: BP 105/68; PULSE 59; RESP 18; TEMP 36.6; O2SAT 99
[2020-10-03] MEDS: Divalproex Sodium Sprinkles 125 MG CAP.DR.SPR 250 MG PO (20:43)
[2020-10-04] VITALS: BP 102/61; PULSE 75; RESP 16; TEMP 521.6; TEMP 971; O2SAT 98
[2020-10-04 04:00] VITALS: BP 90/59; PULSE 60; RESP 16; TEMP 36.6; O2SAT 98
[2020-10-04 07:18] VITALS: BP 98/66; PULSE 97; RESP 18; TEMP 36.1; O2SAT 100
[2020-10-04] MEDS: Lactulose 20 GM/30 ML SOLUTION 10 GM G-TUBE (08:39)
[2020-10-04 11:21] VITALS: BP 90/63; PULSE 64; RESP 18; TEMP 36.4; O2SAT 100
[2020-10-04 11:56] VITALS: BP 101/77
--- NOTE | 2020-10-04 12:12 | MHC.CM.PN ---
PTS MOTHER, MATEO, ARRIVED TODAY TO TRANSPORT PT HOME TO [place]. CM MET WITH PT AND MOTHER TO ENSURE THERE WERE NO QUESTIONS. THEY ARE AWARE THE PREVIOUS CM HAS CONTACTED EATING DISORDER/BEHAVIOR CLINICS. THE NAMES OF THE CLINICS WERE GIVEN TO PTS MOTHER. PT IS IN GOOD SPIRITS AND APPEARS READY TO GO HOME. NURSE WAS PRESENT ASSISTING PT IN GETTING READY. PT WILL DISCHARGE HOME WITH FAMILY TODAY. PTS MOTHER REPORTS THEY WILL BE ABLE TO [employer] PTS CAR AFTER 1300 HOURS TODAY. THEY ARE AWARE THE PT IS NOT SAFE TO DRIVE.
--- NOTE | 2020-10-04 16:24 | PM.DS ---
DS: Providers Provider Date of Service: 10/04/20 Date of admission: 09/29/20 22:45 Primary care physician: Nonstaff Physician Consults: 09/29/20 21:31 Consult to Thoracic Surgery Stat Consulting Provider: Dennis Rader Reason for consultation: abnormal ct chest 09/30/20 01:54 Consult to Thoracic Surgery Routine Consulting Provider: Dennis Rader Reason for consultation: questionable FB Has provider been notified: No 09/30/20 05:54 Consult to Crisis Stat Reason for consultation: suicidal ideation Has provider been notified: No 09/30/20 10:21 Consult to Gastroenterology Routine Consulting Provider: Emma Garza Reason for consultation: foreign body ingestion Has provider been notified: No 09/30/20 20:52 Consult to Neurology Routine Consulting Provider: [facility] Reason for consultation: seizures Has provider been notified: No 10/01/20 10:25 Consult to Psychiatry Routine Consulting Provider: Romain Butler Reason for consultation: refusing testing bipolar/autism Has provider been notified: No DS: Diagnosis Discharge Diagnosis (1) PTSD (post-traumatic stress disorder): Status: Acute (2) Autism disorder: Status: Acute (3) Schizoaffective disorder, bipolar type: Status: Acute (4) Seizure disorder: Status: Acute (5) Gastrostomy status: Status: Acute (6) Foreign body ingestion: Status: Acute (7) Suicidal behavior: Status: Acute DS: Medications Discharge Medications Home Medications: Home Medications Medication Instructions Recorded Confirmed No Known Home Meds 09/29/20 09/29/20 DS: Summary Hospital Course Hospital Course: History of presenting illness Chief Complaint: confusion This is a 35-year-old biological male who prefers the pronouns of them/they and goes by the name of Jamshid who was brought into the hospital after by standard noticed that she was confused at the gas station.? When I interviewed the patient she was alert, oriented to self and place but does not remember the event.? She reports that she was feeling very anxious, felt like she was going to have a seizure and that is all she remembers.? She does not remember having a seizure and she has stopped at the gas station because she was trying to get to [place].? She lives with her parents who are her healthcare proxy, ED PA discuss the case with her family, and her family reported that the patient usually gets these spells and they are psychiatric episodes and related to personality behavior.? Patient has significant PICA were she eats strange items in the ED she was noted to eat gauze as well as tele electrode lead.? She also history of esophageal perforation as a child after ingesting some luck with chemical and is currently feeds herself through a G-tube.? She reports that she feed herself baby formula boluses.? She does not like taking food p.o. but seldom agrees to it. Patient also endorses suicidal ideation and severe depression.? Denies any plan to hurt herself. Of note patient does have history of seizure disorder but they took themselves of medication about 4 weeks ago as they say that they have not had any seizures for 4 weeks.? Patient was on Keppra. On arrival to the ED her vitals within normal limit Labs reviewed show WBC count of 5.8, hemoglobin of 12.5 otherwise unremarkable.? UA negative, UDS negative, She had extensive imaging including a head and cervical spine CT which showed no acute intracranial pathology and no acute fracture malalignment in the cervical spine. Her chest CT showed a left-sided complex collection in the posterior chest which extends from the level of the diaphragm all the way up into the region of the cervical esophagus on the left neck, but a communication with the pharynx is not seen with certainty.? Within this collection there appears to be a metallic and possibly plastic foreign body.? Thoracic surgery was contacted and this finding was discussed, they would like patient to be admitted and evaluated with a swallow study. Hospital course 35-year-old female with past medical history of bipolar/personality disorder, as well as seizure disorder presents to the hospital after being found confused.? CT of the chest showed possible foreign body, therefore patient admitted with consult to thoracic surgery, patient remained asymptomatic with no nausea, no vomiting, no abdominal discomfort, patient declined barium swallow study as recommended by thoracic surgery, she underwent serial chest x-rays that showed foreign body within the colonic interposition slightly moved down, since patient is asymptomatic she is being discharged home with family with likelihood that she will pass it. Patient has known history of PICA and followed in body ingestion, informed family to return to hospital with any worsening abdominal pain, nausea or vomiting. During course of hospitalization patient was noted to have multiple episodes of transient unresponsiveness with eye ruled up, no seizure-like activity was noted with no tongue biting no postictal state, patient was able to converse during the episodes, patient seen by neurologist Dr. Chavez who felt patient has nonepileptic seizure-like episodes, and recommend Depakote 250 mg at bed time however patient declined the medication previously she was on Keppra but she stop using it due to side effects. Likely patient confusion on admission was due to 1 of these episodes. ?? In regard to suicidal ideation patient was seen by Psychiatry patient has multiple psychiatric disorders including bipolar disorder/borderline personality disorder/autism patient not on any medications seen by psych and they found no evidence of psychosis or illogical thought at this time,she is noted to be fully Awake alert X4 and was able to fully articulate the risks of refusing anti-seizure or psychiatric medications.? Patient spoke in full, coherent, age-appropriate sentences during entire encounter she was able to fully articulate an understanding of the consequences of doing so, as well as the consequences of refusing? fluids and tube feedings while here, patient denied any thought of harm to self or others at this time, and fully understands the consequences of refusing treatment.? Although patient may have limited capacity to make decisions, psych feels she display capacity to work on safe discharge planning with participation of family , therefore she is being discharged home with her family. ? In regard to her nutrition patient was evaluated by health science writer and she was fed through G-tube, patient refused to take food by mouth she is status post esophageal? surgery since at age 25 month she ingested draino, received treatment at [facility] in [place] initially her esophagus was repaired and she was fed with G-tube but she developed esophageal rupture and underwent esophageal surgery with colonic interposition subsequently she was able to eat by mouth, but several months ago she swallowed plastic gloves and had to have a G-tube placed to remove the gloves and since then patient is feeding herself baby formula via G-tube, patient also has issues with regurgitating food even 24 hours after eating that makes her more anxious about taking food by mouth,? has been seen by health science writer in [place] therefore recommend her to continue outpatient follow-up to maximize her calorie intake. ?? Time Spent with Patient Time attestation: Total time spent providing and/or coordinating discharge services: Discharge coordination time: Greater than 30 minutes Quality: Stroke Does the patient have a stroke diagnosis?: No Physical Exam Vital Signs: Vital Signs: Last Vital Signs Temp 97.6 F 10/04/20 11:21 Pulse 64 10/04/20 11:21 Resp 18 10/04/20 11:21 BP 101/77 10/04/20 11:56 Pulse Ox 100 10/04/20 11:21 Body Mass Index 20.3 General? thin built, no acute distress.? Neck supple, no JVD. CVS? regular rate rhythm, Respiratory lungs clear to auscultation, no respiratory distress, no wheeze, no rhonchi. Gastrointestinal abdomen soft, nontender, bowel sounds audible, G-tube in place no surrounding hyperemia. Extremities no edema. Neuro nonfocal , speech clear. Skin no rash DS: Data Data Completed and Pending Labs on day of discharge: Laboratory Results - last 24 hr 10/03/20 16:35 POC Glucose 81 Preliminary micro results at discharge 09/29/20 14:31 Blood Culture - Preliminary Blood - Venous No growth after 48 hours. 09/29/20 14:31 Blood Culture - Preliminary Blood - Venous No growth after 48 hours. Discharge Plan Discharge Patient Disposition: Home, Self-Care Discharge Diagnosis: Foreign body ingestion Pseudoseizures PICA Borderline personality disorder Referrals: Physician,Nonstaff [Primary Care Provider] - 1 Week Discharge Medications: No Action No Known Home Meds RF: 0 Discharge Orders: Discharge Order (Routine); Ordered 10/04/20 Ordered By: Edna Segura Diet: advance to usual diet Activity on Discharge: As tolerated Stand Alone Forms: Patient Portal Discharge page Care Plan Goals: Foreign body ingestion, return to hospital with any abdominal pain, nausea , vomiting shortness of breath will need psychiatric treatment for underlying multiple psychiatric disorder, Health Concerns: Multiple psychiatric disorder, status post abdominal surgery continue G-tube feedings Plan of Treatment: Outpatient follow-up with primary care physician, health science writer Assessment: as above Discharge Date/Time: 10/04/20 12:24
== END 2020-10-04 12:24 | disposition home or self-care (01) | DRG 394 ==
LOC: HO.ED 22:16 → HO.S3 09-30 07:55 → HO.EDOVER 10-02 08:40 → HO.S3 10-02 08:40
PROVIDERS: Physician Assistant Medical; Admitting Provider Internal Medicine; Emergency Provider Emergency Medicine; Visit Provider Hospitalist
DX: T18.9XXA Foreign body of alimentary tract, part unspecified, initial encounter (principal); R45.851 Suicidal ideations; F84.0 Autistic disorder; F64.0 Transsexualism; F31.9 Bipolar disorder, unspecified; F60.3 Borderline personality disorder; R56.9 Unspecified convulsions; X58.XXXA Exposure to other specified factors, initial encounter; Z20.822 Contact with and (suspected) exposure to COVID-19; Z91.5 Personal history of self-harm; Z93.1 Gastrostomy status; Y93.9 Activity, unspecified; Y92.238 Other place in hospital as the place of occurrence of the external cause; Y99.9 Unspecified external cause status
CPT/HCPCS: 0241U; 36415; 70450; 70490; 71045; 71250; 72125; 74018; 74176; 80048; 80053; 80143; 80179; 80307; 81003; 81025; 82077; 82140; 82947; 83690; 83735; 83880; 85025; 87040; 93005; 94799; 96360; 96372; 99218; 99285; 99291; J1953